=== PATIENT | male | born 1935 | race Caucasian/White ===

== ENCOUNTER 2017-10-11 09:39 | Outpatient (CLI) | payer MEDICARE, BC | END 2017-10-11 09:40 | disposition home or self-care (01) | LOC: BICMRI 09:39 | PROVIDERS: ATTEND Internal Medicine Gastroenterology | DX: R60.0 Localized edema (principal); R93.3 Abnormal findings on diagnostic imaging of other parts of digestive tract; R41.3 Other amnesia; K74.69 Other cirrhosis of liver; R68.89 Other general symptoms and signs; N28.1 Cyst of kidney, acquired; K76.6 Portal hypertension; K86.2 Cyst of pancreas; R16.1 Splenomegaly, not elsewhere classified; K76.89 Other specified diseases of liver | CPT/HCPCS: 74183; 82565 ==

== ENCOUNTER 2017-11-05 12:53 | Outpatient (CLI) | payer MEDICARE, BC | END 2017-11-05 12:54 | disposition home or self-care (01) | LOC: BICULT 12:53 | PROVIDERS: ATTEND Family Medicine | DX: N43.3 Hydrocele, unspecified (principal); Z98.890 Other specified postprocedural states | CPT/HCPCS: 76870; 93976 ==

== ENCOUNTER 2018-03-14 11:10 | Emergency (ER) | payer MEDICARE, BC ==
--- NOTE | 2018-03-14 12:00 | RAD ---
RIGHT WRIST 3 VIEWS: Date: 03/14/18 HISTORY: Wrist pain status post fall. FINDINGS: The bones appear slightly demineralized. There are arthritic changes of the wrist, mainly related to changes of the first carpometacarpal joint space and triscaphe joint. There is suggestion of some bor derline widening to the scapholunate ligament which may represent a scapholunate ligament tear which may very well be chronic in this patient. No signs of any acute fracture. IMPRESSION: No acute fracture. POS: [facility]
--- NOTE | 2018-03-14 12:07 | RAD ---
RIGHT HAND RADIOGRAPHS 3 VIEWS: DATE: 03/14/18. PROVIDED CLINICAL HISTORY: Pain status post fall. FINDINGS: Ring jewelry obscures the ring digit proximal phalanx. Given this limitation, there is no evidence f or a fracture or other acute osseous abnormality. Degenerative changes are seen. If there is persis tent clinical concern, conservative management and followup imaging are advised. IMPRESSION: As above. POS: [facility]
--- NOTE | 2018-03-14 12:43 | RAD ---
RIGHT ELBOW FOUR VIEWS: History: Fall. FINDINGS: There is elevation to the anterior fat pad suggesting a joint effusion. There are arthritic changes o f the elbow. On one of the oblique views there is lucency which extends through the supracondylar reg ion which is suspicious for a fracture, however, I cannot definitely see this on any of the other pro jections. It involves more of the lateral epicondyle region although appears fairly convincing on emerson t one image. IMPRESSION: Joint effusion and arthritic changes of the elbow, a single film finding which suggests a nondisplace d fracture through the lateral epicondyle region, somewhat unusual and I cannot see this on the other projections. This appears suspicion on this one view. It is possible that is related to overlying so ft tissue given the fact that I cannot see it on the other projections. It may be helpful to obtain s ome repeat oblique views to try to definitely reproduce this finding. POS: [facility]
--- NOTE | 2018-03-14 13:07 | CT ---
CT OF BRAIN PERFORMED WITHOUT CONTRAST ENHANCEMENT: History: Fall with head injury. FINDINGS: There is some mild generalized ventricular and sulcal prominence. There are no signs of intracerebral hemorrhage or extraaxial fluid collections. Mastoid air cells and visualized sinuses are clear. IMPRESSION: No acute intracranial abnormalities. POS: [facility]
--- NOTE | 2018-03-14 13:17 | CT ---
CT OF FACIAL BONES PERFORMED WITHOUT CONTRAST ENHANCEMENT: HISTORY: Fall, landing on face. FINDINGS: The nasal bone appears intact. Zygomatic arches are normal in appearance. No fluid is seen within the sinuses. There is no evidence of any orbital or maxillary fracture. Condyles are in normal position. No mandibular fracture. IMPRESSION: No CT evidence of fracture of the facial bones. POS: [facility]
== END 2018-03-14 13:37 | disposition home or self-care (01) ==
LOC: SCSER 11:10
DX: S42.411A Displaced simple supracondylar fracture without intercondylar fracture of right humerus, initial encounter for closed fracture (principal); I10 Essential (primary) hypertension; W18.30XA Fall on same level, unspecified, initial encounter
CPT/HCPCS: 29105; 70450; 70486

== ENCOUNTER 2018-04-03 07:37 | Outpatient (CLI) | payer MEDICARE, BC ==
--- NOTE | 2018-04-03 10:38 | MRI ---
MRI ABDOMEN WITH AND WITHOUT IV CONTRAST: INDICATIONS: History of cryptogenic cirrhosis of the liver, esophageal varices, and hepatic encephalopathy. COMPARISON: MRI abdomen, dated 10/11/2017 and 10/14/2015. TECHNIQUE: Multiplanar, multisequence MR images were obtained of the abdomen utilizing hepatic mass protocol, an d 7 mL of MultiHance was utilized for the examination due to the patient's GFR being 39 and a creatin ine level of 1.7. FINDINGS: The multiple T2 hyperintense, nonenhancing, cystic lesions of the liver, pancreas, and kidneys are st able. There is a stable, mildly prominent proteinaceous cyst involving the inferior pole of the righ t kidney, measuring 1.5 cm. No hydronephrosis is evident. A small amount of free fluid is seen with in the abdomen. The spleen remains enlarged, measuring 16.1 cm in greatest craniocaudad dimension. This is stable to the prior exam. Paraesophageal varicosities are similar appearing. There is wall thickening involving portions of the distal esophagus that appear similar. No bone marrow signal abn ormality is evident. No suspicious arterially enhancing focal hepatic lesion is demonstrated. IMPRESSION: 1. No suspicious arterial enhancing lesions seen within the liver to suggest hepatocellular carcinom a. 2. Cirrhotic morphology of the liver with portal hypertension and mild paraesophageal varicosities. 3. Wall thickening involving the distal esophagus may be related to esophagitis. 4. Stable hepatic, pancreatic, and renal cysts. POS: [facility]
[2018-04-03] MEDS ORDERED: Gadobenate Dimeglumine 529 MG/1 ML (20ML VIAL) ONE (16:10)
== END 2018-04-03 07:38 | disposition home or self-care (01) ==
LOC: BICMRI 07:37
PROVIDERS: ATTEND Internal Medicine Gastroenterology
DX: I85.00 Esophageal varices without bleeding (principal); K72.90 Hepatic failure, unspecified without coma; D64.9 Anemia, unspecified; K74.69 Other cirrhosis of liver; R41.3 Other amnesia; R93.3 Abnormal findings on diagnostic imaging of other parts of digestive tract; R79.9 Abnormal finding of blood chemistry, unspecified; K76.6 Portal hypertension; N28.1 Cyst of kidney, acquired; K76.89 Other specified diseases of liver; K86.2 Cyst of pancreas; K22.8 Other specified diseases of esophagus
CPT/HCPCS: 74183; 82565; A9579

== ENCOUNTER 2018-10-30 07:25 | Outpatient (CLI) | payer MEDICARE, BC ==
--- NOTE | 2018-10-30 08:18 | ULT ---
Exam: HEPATIC ULTRASOUND WITH HEPATIC DOPPLER: HISTORY: Cirrhosis. COMPARISON: None. TECHNIQUE: Grayscale, color flow, Doppler imaging, and spectral waveform analysis performed of the l iver FINDINGS: There is evidence of ascites. There is nodularity at the hepatic margin, compatible with patient's history of cirrhosis. No obvious masses within the liver. Liver measures 12.7 cm. Spleen has a normal echotexture. There is splenomegaly with a maximum dimension of 14.2 cm. Small spl enule at the splenic hilum measuring 2.3 x 1.5 x 1.8 cm noted. Gallbladder wall is thickened, likely due to presence of ascites. No sonographic evidence of cholelit hiasis. Comment is not made on the presence or absence of a Angeles's sign. Common bile duct diameter 0.6 cm. Hepatic Doppler: There is patency and normal directional flow of the hepatic artery, left hepatic vei n, middle hepatic vein, right hepatic vein, right portal vein, left portal vein, and the main portal vein Splenic vein and artery are also patent IMPRESSION: 1. Ascites. 2. Nodularity of liver, compatible with cirrhotic change. 3. Normal hepatic Doppler. 4. Splenomegaly. Transcribed Date/Time: 10/30/2018 8:35 AM
== END 2018-10-30 07:26 | disposition home or self-care (01) ==
LOC: BICULT 07:25
PROVIDERS: ATTEND Internal Medicine Gastroenterology
DX: K74.69 Other cirrhosis of liver (principal); R60.0 Localized edema; R79.9 Abnormal finding of blood chemistry, unspecified
CPT/HCPCS: 76705

== ENCOUNTER 2018-11-25 07:43 | Day surgery (SDC) | payer MEDICARE, BC ==
[2018-11-22 14:17] VITALS: BMI 24.9
[2018-11-25] MEDS ORDERED: Sodium Bicarbonate 2.5 MEQ/5 ML VIAL ONE (07:49)
[2018-11-25] MEDS ORDERED: Lidocaine 1% PF 5 ML VIAL ONE (07:49)
[2018-11-25] MEDS ORDERED: Albumin 25% 100 ML ONE (08:16)
[2018-11-25 09:14] VITALS: BP 149/71; TEMP 97.5
--- NOTE | 2018-11-25 09:50 | ULT ---
Sonographic guided paracentesis HISTORY: Ascites. Patient is uncomfortable. FINDINGS: After explaining the procedure and answering all questions, sonographic survey shows modera te amount of free fluid throughout the abdomen. Sterile technique, buffered local anesthesia, sonographic guidance, and a right lower quadrant approa ch were used to carefully advance a 19-gauge Yueh needle and catheter into the free fluid. Catheter was left to drain a total volume of 3.0 L yellow liquid. Catheter was removed. Minimal fluid remains. Patient tolerated the procedure well and was dismissed in good condition. IMPRESSION: Technically successful sonographic guided paracentesis.
== END 2018-11-25 09:00 | disposition home or self-care (01) ==
LOC: ULT 07:43
PROVIDERS: ATTEND Internal Medicine Gastroenterology
DX: K74.60 Unspecified cirrhosis of liver (principal); I85.10 Secondary esophageal varices without bleeding; R18.8 Other ascites; I12.9 Hypertensive chronic kidney disease with stage 1 through stage 4 chronic kidney disease, or unspecified chronic kidney disease; E11.22 Type 2 diabetes mellitus with diabetic chronic kidney disease; N18.9 Chronic kidney disease, unspecified; D63.1 Anemia in chronic kidney disease; I25.10 Atherosclerotic heart disease of native coronary artery without angina pectoris; K59.00 Constipation, unspecified; R19.7 Diarrhea, unspecified; R63.4 Abnormal weight loss; Z79.82 Long term (current) use of aspirin; Z79.84 Long term (current) use of oral hypoglycemic drugs; Z79.899 Other long term (current) drug therapy; Z95.1 Presence of aortocoronary bypass graft
CPT/HCPCS: 49083; P9047; J2001

== ENCOUNTER 2019-02-10 07:24 | Day surgery (SDC) | payer MEDICARE, BC ==
[2019-02-07 16:42] VITALS: BMI 26.7
[2019-02-10 07:42] LABS: INR-International Normal Ratio 1.3; PTT 32.6 SEC (22.9-36.1); Prothrombin Time 16.1 SEC (12.0-14.7)
[2019-02-10 07:56] LABS: #Basophils 0.1 thou/uL (0.0-0.2); #Eosinphils 0.2 thou/uL (0.0-0.7); #Lymphocytes 0.5 thou/uL (1.20-3.40); #Monocytes 0.5 thou/uL (0.11-0.59); #Neutrophils 4.6 thou/uL (1.40-6.50); %Eosinophils 3.4 % (0.0-10.0); %Lymphocytes 8.5 % (21.0-51.0); %Monocytes 8.3 % (0.0-10.0); %Neutrophils 78.8 % (42.0-75.0); Hemoglobin 11.4 g/dL (14.0-18.0); MDiff Complete? YES; Macrocytosis SLIGHT = 6-15 cells (100X) (0-5/hpf); Mean Corpuscular HGB CONC 32.7 g/dL (32.0-36.0); Mean Corpuscular Hemoglobin 35.1 pg (27.0-31.0); Mean Platelet Volume 8.4 fL (7.4-10.4); Ovalocytes SLIGHT = 2-5 cells (100X) (0-1/hpf); Platelet Count 85 thou/uL (130-400); Platelet Morphology Comment Appears Decreased; Polychromasia SLIGHT = 2-3 cells (100X) (0-2/hpf); RBC Distribution Width 13.5 % (11.5-14.5); Red Blood Cell (RBC) Count 3.24 mill/uL (4.70-6.10); White Blood Cell (WBC) Count 5.9 thou/uL (4.8-10.8)
[2019-02-10] MEDS ORDERED: Sodium Bicarbonate 2.5 MEQ/5 ML VIAL ONE (08:36)
--- NOTE | 2019-02-10 10:14 | ULT ---
Ultrasound-guided paracentesis: HISTORY: Symptomatic ascites FINDINGS: Informed consent obtained prior to the procedure. Preprocedural imaging demonstrated signif icant ascites throughout the abdomen and pelvis. Right lower quadrant prepped and draped in normal sterile fashion and anesthetized with 1% buffered l idocaine. With direct sonographic guidance, 5 Albanian Yueh catheter is advanced into the ascites and removal of the stylet yielded yellow fluid. 6.2 L were removed. The patient tolerated the procedure well. No postprocedural complications. IMPRESSION: Successful ultrasound-guided paracentesis yielding 6.2 L of yellow ascites.
[2019-02-10 10:17] VITALS: BP 189/92; TEMP 97.5
[2019-02-10 12:40] LABS: RBC Count-Automated (BF) 113 /cumm; WBC/Nucleated-Auto (BF) 175 /cumm
[2019-02-10 12:42] LABS: BF Color Yellow; Body Fluid Source Ascites Body Fluid; Clarity Hazy (Clear); Tube # EDTA
[2019-02-10 13:47] LABS: BF Segmented Neutrophils 6 %; Cell Count Non Hematic 73 %; Lymphocytes 21 %
== END 2019-02-10 10:00 | disposition home or self-care (01) ==
LOC: ULT 07:24
PROVIDERS: ATTEND Physician Assistant Medical
PROC: 0W9G3ZZ Drainage of Peritoneal Cavity, Percutaneous Approach (ICD-10-PCS; principal; 2019-02-10)
DX: R18.8 Other ascites (principal); K74.60 Unspecified cirrhosis of liver; I12.9 Hypertensive chronic kidney disease with stage 1 through stage 4 chronic kidney disease, or unspecified chronic kidney disease; E11.22 Type 2 diabetes mellitus with diabetic chronic kidney disease; N18.9 Chronic kidney disease, unspecified; I25.10 Atherosclerotic heart disease of native coronary artery without angina pectoris; Z87.891 Personal history of nicotine dependence; Z79.82 Long term (current) use of aspirin; Z79.84 Long term (current) use of oral hypoglycemic drugs; Z79.899 Other long term (current) drug therapy; Z95.1 Presence of aortocoronary bypass graft
CPT/HCPCS: 49083; 85025; 85060; 85610; 85730; 87070; 87205; 89051

== ENCOUNTER 2019-03-05 16:59 | Emergency (ER) | payer MEDICARE, BC | END 2019-03-05 17:26 | disposition home or self-care (01) | LOC: SCSER 16:59 | DX: S61.212A Laceration without foreign body of right middle finger without damage to nail, initial encounter (principal); I10 Essential (primary) hypertension; W01.198A Fall on same level from slipping, tripping and stumbling with subsequent striking against other object, initial encounter | CPT/HCPCS: 99282 ==

== ENCOUNTER 2019-03-14 12:08 | Day surgery (SDC) | payer MEDICARE, BC ==
[2019-03-13 14:35] VITALS: BMI 26.7
[2019-03-14 12:28] LABS: #Eosinphils 0.1 thou/uL (0.0-0.7); #Lymphocytes 0.6 thou/uL (1.20-3.40); #Monocytes 0.6 thou/uL (0.11-0.59); #Neutrophils 4.2 thou/uL (1.40-6.50); %Basophils 0.3 % (0.0-1.0); %Eosinophils 2.4 % (0.0-10.0); %Lymphocytes 10.3 % (21.0-51.0); %Monocytes 10.5 % (0.0-10.0); %Neutrophils 76.4 % (42.0-75.0); Hemoglobin 9.9 g/dL (14.0-18.0); Mean Corpuscular HGB CONC 33.4 g/dL (32.0-36.0); Mean Corpuscular Hemoglobin 34.9 pg (27.0-31.0); Mean Platelet Volume 9.2 fL (7.4-10.4); Platelet Count 81 thou/uL (130-400); RBC Distribution Width 13.2 % (11.5-14.5); Red Blood Cell (RBC) Count 2.84 mill/uL (4.70-6.10); White Blood Cell (WBC) Count 5.4 thou/uL (4.8-10.8)
[2019-03-14 12:30] LABS: INR-International Normal Ratio 1.4; PTT 32.6 SEC (22.9-36.1); Prothrombin Time 17.1 SEC (12.0-14.7)
[2019-03-14] MEDS ORDERED: Albumin 25% 200 ML ONE (12:37)
[2019-03-14] MEDS ORDERED: Sodium Bicarbonate 2.5 MEQ/5 ML VIAL ONE (12:37)
[2019-03-14 12:45] LABS: Anion Gap 10 mmol/L (10-20); BUN (Urea Nitrogen) 73 mg/dL (8.4-25.7); Calc. Creatinine Clearance 15 mL/min (70-130); Calcium 8.7 mg/dL (7.8-10.44); Carbon Dioxide 18 mmol/L (23-31); Chloride 112 mmol/L (98-107); Estimated GFR-MDRD 14; Glucose 118 mg/dL (83-110); Potassium 5.3 mmol/L (3.5-5.1); Sodium 135 mmol/L (136-145)
--- NOTE | 2019-03-14 14:53 | ULT ---
Ultrasound-guided paracentesis: HISTORY: Cirrhosis and ascites. FINDINGS: Informed consent obtained prior to the procedure. Preprocedural imaging demonstrated intrap eritoneal free fluid. An area was marked in the right mid abdomen, and then meticulously prepped and draped in normal steri le fashion and anesthetized with 1% buffered lidocaine. 50 mg of albumin was administered intravenously during the procedure is requested. With direct sonographic guidance, a 19-gauge needle and 5 [place] catheter were advanced into the abdomen. After the return of fluid, the catheter was advanced, and the needle was removed. Approximately 5 L of clear straw-colored fluid was aspirated. The introducer sheath was removed, and hemostasis was achieved with direct pressure. A dry sterile dressing was placed. The patient tolerated the procedure well and without immediate complication. IMPRESSION: Technically successful ultrasound-guided paracentesis.
== END 2019-03-14 14:00 | disposition home or self-care (01) ==
LOC: ULT 12:08
PROVIDERS: ATTEND Internal Medicine Gastroenterology
PROC: 0W9G3ZZ Drainage of Peritoneal Cavity, Percutaneous Approach (ICD-10-PCS; principal; 2019-03-14)
DX: K74.60 Unspecified cirrhosis of liver (principal); R18.8 Other ascites; I12.9 Hypertensive chronic kidney disease with stage 1 through stage 4 chronic kidney disease, or unspecified chronic kidney disease; E11.22 Type 2 diabetes mellitus with diabetic chronic kidney disease; N18.9 Chronic kidney disease, unspecified; I25.10 Atherosclerotic heart disease of native coronary artery without angina pectoris; Z79.82 Long term (current) use of aspirin; Z79.899 Other long term (current) drug therapy; Z95.1 Presence of aortocoronary bypass graft; Z95.2 Presence of prosthetic heart valve
CPT/HCPCS: 49083; 80048; 85025; 85610; 85730; P9047; 36415

== ENCOUNTER 2019-03-18 09:05 | Inpatient (IN) | payer MEDICARE, BC ==
[2019-03-18 09:39] LABS: #Basophils 0.1 thou/uL (0.0-0.2); #Eosinphils 0.2 thou/uL (0.0-0.7); #Lymphocytes 0.4 thou/uL (1.20-3.40); #Monocytes 0.4 thou/uL (0.11-0.59); #Neutrophils 4.1 thou/uL (1.40-6.50); %Basophils 1.3 % (0.0-1.0); %Eosinophils 3.4 % (0.0-10.0); %Lymphocytes 8.4 % (21.0-51.0); %Monocytes 8.3 % (0.0-10.0); %Neutrophils 78.7 % (42.0-75.0); Hemoglobin 10.1 g/dL (14.0-18.0); Mean Corpuscular HGB CONC 33.5 g/dL (32.0-36.0); Mean Corpuscular Hemoglobin 35.7 pg (27.0-31.0); Mean Platelet Volume 8.6 fL (7.4-10.4); Platelet Count 75 thou/uL (130-400); RBC Distribution Width 13.5 % (11.5-14.5); Red Blood Cell (RBC) Count 2.83 mill/uL (4.70-6.10); White Blood Cell (WBC) Count 5.3 thou/uL (4.8-10.8)
[2019-03-18 09:55] LABS: ALT (SGPT) 21 U/L (8-55); AST (SGOT) 38 U/L (5-34); Alkaline Phosphatase 150 U/L (40-110); Anion Gap 10 mmol/L (10-20); BUN (Urea Nitrogen) 78 mg/dL (8.4-25.7); Bilirubin, Total 0.7 mg/dL (0.2-1.2); Calc. Creatinine Clearance 0 mL/min (70-130); Calcium 8.5 mg/dL (7.8-10.44); Carbon Dioxide 17 mmol/L (23-31); Chloride 111 mmol/L (98-107); Estimated GFR-MDRD 17; Globulin 2.6 g/dL (2.4-3.5); Glucose 174 mg/dL (83-110); Lipase 45 U/L (8-78); Protein, Total 5.6 g/dL (5.8-8.1); Sodium 133 mmol/L (136-145)
[2019-03-18 09:56] LABS: ALT (SGPT) 21 U/L (8-55); AST (SGOT) 38 U/L (5-34); Alkaline Phosphatase 151 U/L (40-110); Bilirubin, Direct 0.4 mg/dL (0.1-0.3); Bilirubin, Total 0.7 mg/dL (0.2-1.2); Protein, Total 5.6 g/dL (5.8-8.1)
--- NOTE | 2019-03-18 10:29 | RAD ---
PORTABLE CHEST: Date: 03/18/19 HISTORY: Dyspnea. COMPARISON: 11/22/18 exam. FINDINGS: The heart size is enlarged. There are postop sternotomy changes. Aortic valve replacement is noted. C hronic-appearing lung changes are seen. IMPRESSION: Cardiomegaly with chronic lung change. No signs of pulmonary edema. POS: [facility]
[2019-03-18 10:34] LABS: MDiff Complete? YES; Macrocytosis SLIGHT = 6-15 cells (100X) (0-5/hpf); Ovalocytes SLIGHT = 2-5 cells (100X) (0-1/hpf); Platelet Morphology Comment Appears Decreased; Polychromasia SLIGHT = 2-3 cells (100X) (0-2/hpf)
[2019-03-18] MEDS ORDERED: Albumin 25% 25 GM/100 ML BOT IVPB SCH (11:15)
[2019-03-18 12:00] LABS: INR-International Normal Ratio 1.3; Prothrombin Time 16.5 SEC (12.0-14.7)
[2019-03-18] MEDS ORDERED: Acetaminophen 325 MG TAB PO PRN (12:01)
[2019-03-18] MEDS ORDERED: Morphine 2 MG/ML SYRINGE SLOW IVP PRN (12:01)
[2019-03-18] MEDS ORDERED: Ondansetron PF 4 MG/2 ML Vial IVP PRN (12:01)
[2019-03-18] MEDS ORDERED: Guaifenesin DM 100-10/5 ML UDCUP PO PRN (12:01)
[2019-03-18] MEDS ORDERED: Senokot S 8.6-50 MG TAB PO PRN (12:01)
[2019-03-18] MEDS ORDERED: Bisacodyl 10 MG SUPP PR PRN (12:01)
[2019-03-18] MEDS ORDERED: Dextrose 50% Abboject 50 ML SYRINGE SLOW IVP PRN (12:01)
[2019-03-18] MEDS ORDERED: HumaLOG 300 UNITS/3 ML VIAL SC PRN (12:01)
[2019-03-18] MEDS ORDERED: Dextrose 5% in Water 1,000 ML IV PRN (12:01)
[2019-03-18 12:25] VITALS: BMI 24.6
[2019-03-18] MEDS ORDERED: FLU VACC TS2019-20(65YR UP)/PF 180 MCG/0.5 ML SYRINGE IM ONE (12:45)
[2019-03-18] MEDS ORDERED: Sodium Bicarbonate 2.5 MEQ/5 ML VIAL ONE (13:27)
[2019-03-18] MEDS ORDERED: Sodium Chloride 0.9% 10 ML ONE (13:33)
--- NOTE | 2019-03-18 15:30 | ULT ---
Ultrasound-guided paracentesis: HISTORY: Cirrhosis and ascites FINDINGS: Informed consent obtained prior to the procedure. Preprocedural imaging demonstrated intrap eritoneal free fluid. An area was marked in the right mid abdomen in the mid axillary line, and then meticulously prepped a nd draped in normal sterile fashion and anesthetized with 1% buffered lidocaine. With direct sonographic guidance, a 19-gauge needle and 5 Serbian Yueh catheter were advanced into the abdomen. After the return of fluid, the catheter was advanced, and the needle was removed. Approximately 4.1 L of clear straw-colored fluid was aspirated. The introducer sheath was removed, a nd hemostasis was achieved with direct pressure. A dry sterile dressing was placed. The patient tolerated the procedure well and without immediate complication. IMPRESSION: Technically successful ultrasound-guided paracentesis.
--- NOTE | 2019-03-18 16:49 | HP ---
REASON FOR ADMISSION: Hepatorenal syndrome, metabolic acidosis, likely CHF exacerbation with diastolic dysfunction, ascites, failure to thrive. HISTORY OF PRESENTING ILLNESS: Please note, majority of this history is obtained by talking to the patient's and daughter as the patient is not fully oriented. He has known history of nonalcoholic cirrhosis from 2013. He had seen Dr. Red, visual associate in [place], and has had complete workup for the same done including a transjugular liver biopsy done in November of 2015. None of these workups revealed a cause for his cirrhosis. He in fact had a cardiac catheterization and MRI done, which did not reveal any constrictive pericarditis. The patient has had history of CKD for last one and half years or so. His GFR was around 38, which recently dropped down to 14. He had paracentesis done on Sunday. Yesterday, he had gone to see Dr. Murrell, who found out that he had a creatinine of 4.1, and asked them to see Dr. Benavides urgently. The family called Dr. Benavides and was asked to get hospitalized for albumin infusions. Family does mention that they do not want anything aggressive to be done. They were in fact leaning towards palliative care. PAST MEDICAL AND SURGICAL HISTORY: History of cirrhosis, etiology unknown; carotid artery stenosis, which was recently evaluated by Dr. Poon for medical management as the patient does not want any intervention; prior paracentesis; aortic valve replacement with CABG done in July of [address] Poon; history of transjugular liver biopsy done on 12/01/2015 at [facility], Dr. Red; has had prior hydrocele, which was removed in December of 2015; cardiac catheterization with MRI done in January of 2016 at [facility], which showed no evidence of constrictive pericarditis; upper endoscopy with esophageal dilation done in October of [address] uMrrell; history of elbow fracture in March of 2018; cataract surgery for both eyes; stress test done in October of [address] Michelle was negative. He has had paracentesis done in November of this year with 3 L removed, in January of this year 6 L removed, and on 03/14/2019 with 5 L removed and today as well. CURRENT MEDICATIONS: The patient takes; 1. Carvedilol 12.5 mg twice daily. 2. Omeprazole 40 mg daily. 3. Ferrous sulfate 325 mg p.o. daily. 4. Aspirin 81 mg p.o. daily. 5. Pravachol 20 mg p.o. at bedtime. 6. Hydralazine 50 mg three times daily. 7. Isosorbide dinitrate 20 mg three times daily. 8. Spironolactone 25 mg daily. ALLERGIES: NO KNOWN DRUG ALLERGIES. PERSONAL HISTORY: Does not abuse alcohol or drugs. No history of smoking. Lives with his . FAMILY HISTORY: Mother of leukemia and its complications in her 70s. Father at the age of 90 and has had DC. The patient ambulates mostly by himself inside the house, but uses cane as a precaution when he goes out. CODE STATUS: The patient wants to be do not attempt to resuscitate. This was confirmed with and daughter, who are here at bedside. REVIEW OF SYSTEMS: CONSTITUTIONAL: Negative for weight loss or gain, ability to conduct usual activities. SKIN: Negative for rash, itching. EYES: Negative for double vision, pain. ENT/MOUTH: Negative for nose bleeding, neck stiffness, pain, tenderness. CARDIOVASCULAR: Negative for palpitations, dyspnea on exertion, orthopnea. RESPIRATORY: Negative for shortness of breath, wheezing, cough, hemoptysis, fever or night sweats. GASTROINTESTINAL: Negative for poor appetite, abdominal pain, heartburn, nausea , vomiting, constipation, or diarrhea. GENITOURINARY: Negative for urgency, frequency, dysuria, nocturia. MUSCULOSKELETAL: Negative for pain, swelling. NEUROLOGIC/PSYCHIATRIC: Negative for anxiety, depression. ALLERGY/IMMUNOLOGIC: Negative for skin rash, bleeding tendency. Please see short template cogent for urgency, frequency, dysuria, nocturia. MUSCULOSKELETAL: Negative for pain, swelling. NEUROLOGIC/PSYCHIATRIC: Negative for anxiety, depression. ALLERGY/IMMUNOLOGIC: Negative for skin rash, bleeding tendency. PHYSICAL EXAMINATION: GENERAL: The patient is an 83-year-old male, who is currently not in any acute distress. VITAL SIGNS: Blood pressure is 148/72, pulse 50 per minute, respiratory rate 16 per minute, temperature 97.7 degrees Fahrenheit, saturating 98% on room air. NECK: Supple. There is elevated JVD. HEENT: Eyes; extraocular muscles are intact. Pupils reacting to light. Oral cavity, mucous membranes are dry. No exudates or congestion. CARDIOVASCULAR: S1 and S2 heard. Murmur plus. RESPIRATORY: Air entry 1+ bilateral. Scattered rales in the infrascapular area. ABDOMEN: Distended. There are ascites present. No rigidity or guarding. EXTREMITIES: There is 2+ peripheral edema. No calf tenderness. VASCULAR: Peripheral pulses 1+ bilateral. No ischemic ulcerations or gangrene. CENTRAL NERVOUS SYSTEM: No gross focal deficits noted. The patient moves all 4 extremities. PSYCHIATRIC: No obvious hallucinations or delusions. IMAGING STUDIES: EKG done shows sinus bradycardia at 47 beats per minute. Chest x-ray done shows cardiomegaly, this postop sternotomy change, aortic valve replacement is seen. Ultrasound-guided paracentesis has been done with removal of 4.1 L clear straw-colored fluid. LABORATORY DATA: Serum bicarb 17, potassium 5.0, BUN 78, creatinine 3.50, glucose 174, total bilirubin 0.7, AST 38, ALT 21, alkaline phosphatase 150. BNP is 1978. Albumin is 3. Lipase is 45. PT/INR 16 and 1.3. White count of 5, hemoglobin and hematocrit 10 and 30, platelet count is 75, MCV of 106, and 78% neutrophils. CLINICAL IMPRESSION AND PLAN: The patient will be admitted to medical floor for recurrent ascites with hepatorenal syndrome and idiopathic cirrhosis. He has a total of 9 L of ascitic fluid removed in the last 4 days now. He will be on albumin infusions for hepatorenal syndrome. Dr. Benavides is aware of the patient and family is also wanting Palliative Care consultation. They do not want any invasive procedures done on him. We will obtain echo with 2D Doppler for LV function and to rule out pericardial effusion. The patient has bradycardia at present with heart rates dipping down to 45, but family do not want any telemetry or aggressive measures for the same for now. We will continue his ferrous sulfate, morphine p.r.n. for pain, Protonix. We will obtain serial metabolic panel to see for stabilization of his renal function. We will obtain consultation with Dr. Murrell, his primary visual associate. His nephew is getting this weekend and he is hoping to be there for the ceremony. Palliative Care needs to talk to all the siblings, , and the patient regarding goals of care and possible hospice. His overall prognosis is guarded. Job ID: [id number] [facility]
[2019-03-18] MEDS ORDERED: Isosorbide Dinitrate 20 MG TAB PO SCH (17:00)
[2019-03-18] MEDS ORDERED: hydrALAZINE 25 MG TAB PO SCH (17:00)
[2019-03-18] MEDS: Sodium Chloride 0.9% 1,000 ML IV SCH (17:23)
[2019-03-18] MEDS: Albumin 25% 25 GM/100 ML BOT IVPB SCH ×2 (17:24→23:48)
[2019-03-18] MEDS: Octreotide Acetate 1,250 MCG in Sodium Chloride 0.9% 250 ML 250 ML IVPB SCH (18:09)
[2019-03-18 19:20] LABS: BF Color Yellow; Body Fluid Source Paracentesis Fluid; Clarity Hazy (Clear); Tube # EDTA
[2019-03-18 19:51] LABS: RBC Count-Automated (BF) 270 /cumm; WBC/Nucleated-Auto (BF) 86 uL
[2019-03-18 19:53] LABS: BF Segmented Neutrophils 14 %; Cell Count Non Hematic 55 %; Lymphocytes 31 %
[2019-03-18] MEDS: Carvedilol 25 MG TAB PO SCH (20:30)
[2019-03-18] MEDS: Rifaximin 550 MG TAB PO SCH (20:31)
[2019-03-18] MEDS: Simvastatin 5 MG TAB PO SCH (20:31)
[2019-03-18] MEDS: hydrALAZINE 25 MG TAB PO SCH (20:34)
[2019-03-18] MEDS: Isosorbide Dinitrate 20 MG TAB PO SCH (20:34)
--- NOTE | 2019-03-18 22:15 | CON ---
DATE OF CONSULTATION: REASON FOR CONSULT: Worsening ascites and worsening renal function. HISTORY OF PRESENT ILLNESS: Mr. Victoria is an 83-year-old gentleman with known coronary artery disease. He had bypass and aortic valve replacement back in 2013. In 2015, he was diagnosed with cirrhosis of unclear etiology. This still most likely associated from fatty liver, possibly cardiac ascites. Paracenteses in the past showed no evidence of SBP. He has had small varices that did not require banding. He has had no previous bleeding. He has had some issues with encephalopathy, but had reactions to lactulose, having a rash and they could not afford Xifaxan. He follows up routinely in our office for hepatoma screening, which has been negative more recently. His diuretics should be decreased as he is having increasing BUN and creatinine and then we went ahead and placed him on paracentesis every two weeks with increased dose of albumin at 50 grams with each paracentesis. His labs from his paracentesis on Sunday came back on yesterday with a creatinine of 4. He saw Dr. Benavides and was admitted to the hospital. His family has not noted any problems with bleeding. They felt he has been more confused recently. He has had no fever or chills. His appetite is very much diminished. He did have a paracentesis today with 4.1 L removed. PAST MEDICAL HISTORY: 1. Cirrhosis, unclear etiology. 2. Peripheral vascular disease with previous carotid repair. Prior valve replacement and CABG in 2013. 3. Prior history of hydrocele, surgically repaired. 4. Prior history of transjugular liver biopsy in [place]. 5. Prior history of elbow fracture and cataract surgery. MEDICATIONS: 1. Carvedilol 12.5 mg b.i.d. 2. Omeprazole 40 mg daily. 3. Ferrous sulfate daily. 4. Aspirin 81 mg daily. 5. Pravachol 20 mg at bedtime. 6. Hydralazine 50 mg t.i.d. 7. Isosorbide dinitrate 20 mg daily. 8. Aldactone 25 mg a day. ALLERGIES: NONE KNOWN. PERSONAL HISTORY: Does not use drugs or smoke. Lives with his . His daughter is here from [place]. There is a family wedding next Sunday, which he is trying to simply get better for to go to. FAMILY HISTORY: Leukemia in his mother in her 70s. Father at the age 90 with MA. The patient lives with his daughter. REVIEW OF SYSTEMS: The patient's family feels he has been more confused recently. His appetite has diminished recently. He has had no overt bleeding, fever, rashes, myalgias or arthralgias, or falls. MEDICATIONS HERE: 1. Tylenol. 2. Bisacodyl. 3. Iron. 4. Levsin. 5. Morphine p.r.n. 6. Zofran p.r.n. 7. Protonix. 8. Albumin 25 g IV q.6. PHYSICAL EXAMINATION: VITAL SIGNS: Blood pressure is 136/67, pulse is 50, temperature 97.4, and respirations 18. GENERAL: He is resting in bed. He is little bit hard of hearing. He recognizes me, knows he is in the hospital, however, he said things that he is eating very well at home and his family says he is not. They noted he has not been sharp remembering family history or distant events recently. In generally, he looks chronically ill. NECK: Supple without any adenopathy. Carotids were noted for bruits. HEART: Has regular rate and rhythm without clicks or murmurs. ABDOMEN: Soft, slightly protuberant with fluid wave. There is no palpable hepatosplenomegaly. EXTREMITIES: Reveal trace edema. There is no clubbing. He has mild asterixis. LABORATORY DATA: White count 5.3, hemoglobin 10.1, platelet count 75,000, and MCV 106. INR is 1.3, which is stable. Sodium 133, potassium 5, BUN and creatinine are 78 and 3.5. On 01/27, these were 46 and 2.46. Hemoglobin A1c is 8.2. Calcium 8.5, bilirubin 0.7, AST and ALT are 38 and 21, alkaline phosphatase is 150, protein is 5.6, and albumin is 3. BNP is 1978. Lipase 45. Amylase 68. ASSESSMENT: 1. Cirrhosis, possibly related to fatty liver, unclear etiology. Negative evaluation for autoimmune liver disease and viral hepatitis. He has been up-to-date on hepatoma screening. Has had become more refractory to diuretics requiring routine paracentesis. 2. Ascites, worsening. He had a tap today. Studies for SBP are pending. 3. Worsening renal function, this is likely hepatorenal. We will defer to Nephrology on ordering tests to look into that further. 4. Hypertension. He has not been started on his home medicines, needs those. RECOMMENDATIONS: 1. I would not restrict his sodium at this time. He is not eating well. 2. If sodium continues to drop, we would hold off on the beta chente, but he does need some blood pressure medicines now. 3. We would hold off on all diuretics. 4. We would check for SBP. 5. We would empirically give him some cefotaxime one dose until cell counts are back. 6. We will keep him on albumin 25 g IV q.6. 7. We would start him on some low-dose IV fluids to improve his renal function. 8. We will put him on octreotide drips as this sometimes can help in hepatorenal syndrome. Job ID: [id number]
--- NOTE | 2019-03-18 22:53 | CON ---
DATE OF CONSULTATION: HISTORY OF PRESENT ILLNESS: Mr. Victoria is an 83-year-old white male with known history of chronic renal failure secondary to a presumed diabetic nephropathy. He came to my office one day prior to admission and he has reported creatinine 4.01. I felt that he had some volume depletion after his last paracentesis which they removed about 5 L. He was admitted for further management. At the ER when he was seen, he was noted to still have significant ascites and he was symptomatic. He again underwent large volume paracentesis today. Please note, creatinine was noted at 3.5. We are being consulted for his acute kidney injury on top of his chronic renal failure. REVIEW OF SYSTEMS: No shortness of breath. Positive for abdominal fullness. No nausea. No vomiting. Decreased energy level. Positive for occasional leg edema. No diarrhea. No constipation. No fever or chills. No productive cough. No gross hematuria. No dysuria. No hematochezia. No melena. HOME MEDICATIONS: Include 1. Carvedilol 12.5 mg tablet b.i.d. 2. Omeprazole 40 mg tablet daily. 3. Ferrous sulfate 325 mg once a day. 4. Aspirin 81 mg tablet once a day. 5. Pravastatin 20 mg tablet at bedtime. 6. Hydralazine 50 mg tab t.i.d. 7. Isordil 20 mg p.o. t.i.d. 8. Furosemide 20 mg tablet p.r.n. 9. Spironolactone 25 mg tablet once a day. PAST MEDICAL HISTORY: 1. Chronic ascites. 2. Cryptogenic cirrhosis. 3. Type 2 diabetes mellitus. 4. 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 5. Status post nephrolithiasis. 6. Hypertension. 7. Hyperlipidemia. 8. GERD. 9. Coronary artery disease. 10. Peripheral vascular disease. PAST SURGICAL HISTORY: Status post transjugular liver biopsy, status post paracentesis, status post cardiac cath, status post lithotripsy, status post left inguinal herniorrhaphy, status post excision of hydrocele, status post left carotid endarterectomy, status post CABG, status post cardiac cath, status post colonoscopy, status post aortic valve replacement, status post cataract surgery. SOCIAL HISTORY: The patient is . Lives in [place]. Three children. He is a retired old . Alcohol, none. Smoked for 30 years, 1 pack a day. Sedentary lifestyle. Denies any blood transfusion. No IV drug abuse. Education, 11th grade. FAMILY HISTORY: No family history of ESRD. ALLERGIES: NONE. TRAUMA: None. IMMUNIZATIONS: Up-to-date. HOSPITALIZATIONS: Please see past medical history. PHYSICAL EXAMINATION: VITAL SIGNS: Blood pressure 176/67, heart rate 50, respiratory rate 16, temperature 97.4, and pulse ox 99%. GENERAL: Noted to be awake, alert, supine, comfortable, not in overt distress. SKIN: Adequate turgor. HEENT: The patient has a slightly pale conjunctivae. Anicteric sclerae. No neck mass. No carotid bruits. No JVD. CHEST: No deformities. LUNGS: Decreased breath sounds. HEART: Normal sinus rhythm. No murmur. No gallops. No rubs. ABDOMEN: Globular, soft, nontender. No masses. Positive for ascites. EXTREMITIES: Trace edema. NEUROLOGICAL: Oriented to 3 spheres. Moving all extremities. No tremors. No asterixis. LABORATORY DATA: March 18, 2019, white count 5.2, hemoglobin 10.1. Sodium 133, potassium 5, chloride 111, carbon dioxide 17, BUN 78, creatinine 3.5, calcium 8.5, albumin 3.0, lipase 45. Further review of his serum creatinine shows the following. March 14, 2019, creatinine 4.12. February 26, 2019, creatinine 2.98. February 20, 2019, 2.72. ASSESSMENT AND PLAN: 1. Acute kidney injury on top of his chronic renal failure, superimposed prerenal azotemia secondary to his underlying cirrhosis and paracentesis. Agree with albumin infusion 25 g IV q.6. We will hold off furosemide temporarily. However, my bias is to continue spironolactone at the current dose of 25 mg tablet once a day. 2. Ascites. Underlying kmfrvbwuf-wiumjqmzjlc-nit a liver transplant candidate. P.r.n. paracentesis. 3. 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 There is no indication for any dialytic intervention with this patient. I have discussed palliative care with this patient and the family. They are interested. 4. Overall, agree with current management. Job ID: [id number]
[2019-03-19 03:48] LABS: #Eosinphils 0.1 thou/uL (0.0-0.7); #Lymphocytes 0.4 thou/uL (1.20-3.40); #Monocytes 0.3 thou/uL (0.11-0.59); #Neutrophils 2.3 thou/uL (1.40-6.50); %Basophils 0.6 % (0.0-1.0); %Eosinophils 4.2 % (0.0-10.0); %Lymphocytes 12.3 % (21.0-51.0); %Neutrophils 71.9 % (42.0-75.0); Hemoglobin 8.4 g/dL (14.0-18.0); Mean Corpuscular HGB CONC 33.7 g/dL (32.0-36.0); Mean Corpuscular Hemoglobin 35.7 pg (27.0-31.0); Platelet Count 59 thou/uL (130-400); RBC Distribution Width 13.4 % (11.5-14.5); Red Blood Cell (RBC) Count 2.36 mill/uL (4.70-6.10); White Blood Cell (WBC) Count 3.1 thou/uL (4.8-10.8)
[2019-03-19 04:08] LABS: ALT (SGPT) 14 U/L (8-55); AST (SGOT) 24 U/L (5-34); Albumin 3.2 g/dL (3.4-4.8); Alkaline Phosphatase 109 U/L (40-110); Anion Gap 11 mmol/L (10-20); BUN (Urea Nitrogen) 76 mg/dL (8.4-25.7); Calc. Creatinine Clearance 17 mL/min (70-130); Calcium 8.5 mg/dL (7.8-10.44); Carbon Dioxide 17 mmol/L (23-31); Chloride 113 mmol/L (98-107); Estimated GFR-MDRD 18; Glucose 94 mg/dL (83-110); Potassium 5.7 mmol/L (3.5-5.1); Protein, Total 5.2 g/dL (5.8-8.1); Sodium 135 mmol/L (136-145)
[2019-03-19] MEDS: Albumin 25% 25 GM/100 ML BOT IVPB SCH ×3 (06:10→18:07)
[2019-03-19] MEDS ORDERED: Spironolactone 25 MG TAB PO SCH (08:00)
[2019-03-19] MEDS: Ferrous Sulfate 325 MG TAB PO SCH ×2 (09:24→09:26)
[2019-03-19] MEDS: Isosorbide Dinitrate 20 MG TAB PO SCH ×3 (09:25→20:35)
[2019-03-19] MEDS: Carvedilol 25 MG TAB PO SCH ×2 (09:25→20:34)
[2019-03-19] MEDS: Rifaximin 550 MG TAB PO SCH ×2 (09:25→20:30)
[2019-03-19] MEDS: Aspirin Chewable 81 MG TAB PO SCH (09:25)
[2019-03-19] MEDS: hydrALAZINE 25 MG TAB PO SCH ×3 (09:25→20:34)
[2019-03-19] MEDS: Sodium Chloride 0.9% 1,000 ML IV SCH ×2 (12:37→23:54)
--- NOTE | 2019-03-19 14:14 | PDOC.HOSPP ---
- Subjective Encounter Date: 03/19/19 Encounter Time: 13:00 Subjective: no pain, feels better after paracentesis yesterday son and daughter at bedside ate his breakfast well this am is mobilizing to bathroom - Objective Vital Signs & Weight: Vital Signs (12 hours) Temp Pulse Resp BP BP Pulse Ox 03/19/19 09:25 55 L 147/64 H 03/19/19 08:00 96 03/19/19 07:28 98.0 F 55 L 16 147/64 H 96 03/19/19 04:48 98.8 F 62 18 129/61 97 Weight Weight 157 lb 8 oz I&O: 03/18/19 03/19/19 03/20/19 06:59 06:59 06:59 Intake Total 730 240 Balance 730 240 Result Diagrams: 03/19/19 03:34 03/19/19 03:34 Additional Labs: Accuchecks 03/19/19 03/19/19 11:32 03:55 POC Glucose 207 H 95 Hospitalist ROS - Medication Medications: Active Medications Generic Name Dose Route Start Last Admin Trade Name Freq PRN Reason Stop Dose Admin Albumin Human 25 gm 03/18/19 18:00 03/19/19 12:30 Albumin 25% IVPB 03/20/19 00:00 25 gm Q6HR CHAPO Administration Aspirin 81 mg 03/19/19 09:00 03/19/19 09:25 Aspirin Chewable PO 81 mg DAILY CHAPO Administration Carvedilol 12.5 mg 03/18/19 21:00 03/19/19 09:25 Coreg PO 12.5 mg BID CHAPO Administration Ferrous Sulfate 325 mg 03/19/19 09:00 03/19/19 09:24 Feosol PO 325 mg DAILY CHAPO Administration Ferrous Sulfate 325 mg 03/19/19 08:00 03/19/19 09:26 Feosol PO Not Given QAM-WM CHAPO Hydralazine HCl 50 mg 03/18/19 21:00 03/19/19 09:25 Apresoline PO 50 mg TID CHAPO Administration Octreotide Acetate 1,250 mcg/ 251.25 mls @ 10.05 mls/hr 03/18/19 17:15 18:09 Sodium Chloride IVPB 251.25 mls INF CHAPO Administration 50 MCG/HR Levofloxacin 250 mg/ Device 50 mls @ 100 mls/hr 03/18/19 18:00 03/18/19 18:08 IVPB 50 mls 1800 CHAPO Administration Sodium Chloride 1,000 mls @ 50 mls/hr 03/18/19 17:15 03/19/19 12:37 Normal Saline 0.9% IV 1,000 mls .Q20H CHAPO Administration Isosorbide Dinitrate 20 mg 03/18/19 21:00 03/19/19 09:25 Isordil PO 20 mg TID CHAPO Administration Pantoprazole Sodium 40 mg 03/19/19 09:00 03/19/19 09:25 Protonix PO 40 mg DAILY CHAPO Administration Pantoprazole Sodium 40 mg 03/19/19 09:00 03/19/19 09:26 Protonix PO Not Given DAILY CHAPO Rifaximin 550 mg 03/18/19 21:00 03/19/19 09:25 Xifaxan PO 550 mg BID CHAPO Administration Simvastatin 10 mg 03/18/19 21:00 03/18/19 20:31 Zocor PO 10 mg HS CHAPO Administration Sodium Chloride 10 ml 03/18/19 21:00 03/19/19 12:32 Flush - Normal Saline IVF 10 ml Q12HR CHAPO Administration - Exam General Appearance: awake alert Eye: anicteric sclera ENT: no oropharyngeal lesions, moist mucosa Neck: supple, no JVD Heart: RRR, no murmur Respiratory: no wheezes, no rales Gastrointestinal: soft, non-tender, normal bowel sounds, distended Extremities: no cyanosis, no edema Neurological: cranial nerve grossly intact, no focal deficits Psychiatric: normal affect, A&O x 3 Hosp A/P (1) Hepatorenal syndrome Code(s): K76.7 - HEPATORENAL SYNDROME Status: Acute (2) Ascites Code(s): R18.8 - OTHER ASCITES Status: Acute (3) Cirrhosis Code(s): K74.60 - UNSPECIFIED CIRRHOSIS OF LIVER Status: Chronic Qualifiers: Hepatic cirrhosis type: unspecified hepatic cirrhosis Ascites presence: with ascites Qualified Code(s): K74.60 - Unspecified cirrhosis of liver; R18.8 - Other ascites (4) Acute exacerbation of CHF (congestive heart failure) Code(s): I50.9 - HEART FAILURE, UNSPECIFIED Status: Acute Qualifiers: Heart failure type: diastolic Qualified Code(s): I50.33 - Acute on chronic diastolic (congestive) heart failure (5) Dementia Code(s): F03.90 - UNSPECIFIED DEMENTIA WITHOUT BEHAVIORAL DISTURBANCE Status: Chronic Qualifiers: Dementia type: unspecified type (6) HTN (hypertension) Code(s): I10 - ESSENTIAL (PRIMARY) HYPERTENSION Status: Chronic Qualifiers: Hypertension type: essential hypertension Qualified Code(s): I10 - Essential (primary) hypertension (7) Dyslipidemia Code(s): E78.5 - HYPERLIPIDEMIA, UNSPECIFIED Status: Chronic - Plan he recieved alb infusion renal function holding up with no further worsening is on asp, coreg, isordil, hydralazine, levaquin, xifaxan, octreotide drip and oral iron hemostable d/w daughter and son at bedside plan is to aim for dc on sunday evening so he can attend his nephew's wedding with family gathering on sunday. Palliative care to meet family today?
[2019-03-19] MEDS: Octreotide Acetate 1,250 MCG in Sodium Chloride 0.9% 250 ML 250 ML IVPB SCH (18:02)
--- NOTE | 2019-03-19 19:40 | EKG ---
Test Reason : SOB/EDEMA Blood Pressure : / mmHG Vent. Rate : 047 BPM Atrial Rate : 047 BPM P-R Int : 182 ms QRS Dur : 084 ms QT Int : 554 ms P-R-T Axes : 016 -40 023 degrees QTc Int : 490 ms Sinus bradycardia Left axis deviation Low voltage QRS Possible Inferior infarct , age undetermined Cannot rule out Anterior infarct , age undetermined Abnormal ECG Confirmed by CARLOS BRUNO, DR. Luna ([id number]) on 03/19/2019 7:39:56 PM Referred By: SWEETIE Confirmed By:DR. Cheryl GONZALEZ MD
[2019-03-19] MEDS: Simvastatin 5 MG TAB PO SCH (20:31)
[2019-03-19] MEDS ORDERED: Lorazepam 1 MG TAB PO SCH (21:00)
[2019-03-20] MEDS: Albumin 25% 25 GM/100 ML BOT IVPB SCH ×5 (00:20→22:02)
[2019-03-20 06:53] LABS: ALT (SGPT) 11 U/L (8-55); AST (SGOT) 17 U/L (5-34); Albumin 3.6 g/dL (3.4-4.8); Alkaline Phosphatase 97 U/L (40-110); Anion Gap 11 mmol/L (10-20); BUN (Urea Nitrogen) 75 mg/dL (8.4-25.7); Bilirubin, Total 0.8 mg/dL (0.2-1.2); Calc. Creatinine Clearance 18 mL/min (70-130); Calcium 8.4 mg/dL (7.8-10.44); Carbon Dioxide 17 mmol/L (23-31); Chloride 115 mmol/L (98-107); Estimated GFR-MDRD 19; Globulin 1.8 g/dL (2.4-3.5); Glucose 105 mg/dL (83-110); Potassium 5.6 mmol/L (3.5-5.1); Protein, Total 5.4 g/dL (5.8-8.1); Sodium 137 mmol/L (136-145)
--- NOTE | 2019-03-20 07:35 | PRG ---
DATE OF SERVICE: 03/19/2019 SUBJECTIVE: Mr. Victoria feels little better today. He is eating little bit better. He is urinating well. MEDICATIONS: 1. Tylenol. 2. Aspirin. 3. Carvedilol 12.5 mg b.i.d. 4. Iron. 5. Glucagon. 6. Hydralazine 50 mg p.o. t.i.d. 7. Insulin sliding scale. 8. Isordil 20 mg p.o. t.i.d. 9. Levofloxacin 250 mg once a day. 10. Ativan p.r.n. 11. Morphine p.r.n. 12. Octreotide drip. 13. Protonix. 14. Seroquel. 15. Xifaxan. 16. Simvastatin. 17. 50 mL an hour of normal saline. PHYSICAL EXAMINATION: GENERAL: He is alert and oriented to person, place, and time. EYES: He is nonicteric. EXTREMITIES: There is no edema in his legs. ABDOMEN: He has fluid wave and shifting dullness with non-tense ascites. No palpable hepatosplenomegaly. There is muscle wasting. NEURO: No asterixis. VITAL SIGNS: Blood pressure 147/64, pulse 55, temperature 98, weight 157. LABORATORY STUDIES: White count 3.1, hemoglobin 8.4, platelet count 59,000. Sodium 135, potassium 5.7, chloride 113, bicarb 17, anion gap 11, BUN 76 down from 78, creatinine 3.3 down from 3.5, glucose 207, bilirubin 1, AST and ALT 24 and 14, total protein 5.2, albumin 3.2. His alpha-fetoprotein was normal in October of this year. Ammonia 61. Ascitic fluid, 86 white blood cells. Culture negative. Pathology, no malignancy. ASSESSMENT: 1. Cirrhosis of unclear etiology. He had a biopsy in 2016 with mildly elevated portal hepatic wedge pressure at 8-10. Despite that, he had fluid overload and ascites. He had no overt heart failure and seemed to have ascites out of proportion to his liver disease. He had no signs of constrictive pericarditis with right atrial pressure of 2 and hepatic vein pressure of around 2 as well. His main issues have been ascites and edema, managing that with renal insufficiency which was felt to be related to chronic diabetic nephropathy. He is admitted with acute on chronic renal failure. It was felt to be related to diuresis for which he has been receiving albumin and his diuretics have been stopped. Today he is feeling little bit better. 2. Elevated potassium. We will continue to hold Aldactone. 3. Slight drop in creatinine. 4. Up-to-date on hepatoma screening. 5. Encephalopathy, doing well. 6. History of heart valve replacement. Echocardiogram today revealed EF of 60%. LV function normal. Right ventricular normal size and cavity. Right ventricular systolic pressure of 77 with component of pulmonary hypertension, mildly dilated left atrium, normal right atrium, normal functioning of bioprosthetic valve, [id number] tricuspid regurgitation. RECOMMENDATIONS: 1. We will increase his IV fluid a bit, hopefully treat his hyperkalemia to see more improvement in renal function. We will continue albumin. We will continue octreotide drip. 2. We would consider involving his waist fitter in his care with right-sided heart pressures. As noted on previous transjugular liver biopsy in 2016, it showed no signs of constrictive pericarditis or elevated right atrial pressures at that time. Interestingly, he had no signs of cirrhosis on his biopsy at that time. We may be dealing with more of a right heart failure issue. 3. I had a long conversation with the patient's daughter about palliative care and options. I think if we can manage him with paracentesis without diuretics and albumin infusions to see how his renal function responds to fluid. Job ID: [id number]
[2019-03-20] MEDS: Ferrous Sulfate 325 MG TAB PO SCH ×2 (08:49→08:50)
[2019-03-20] MEDS: Aspirin Chewable 81 MG TAB PO SCH (08:49)
[2019-03-20] MEDS: Rifaximin 550 MG TAB PO SCH ×2 (08:49→20:16)
[2019-03-20] MEDS: hydrALAZINE 25 MG TAB PO SCH ×3 (08:50→20:16)
[2019-03-20] MEDS: Isosorbide Dinitrate 20 MG TAB PO SCH ×2 (08:51→16:43)
[2019-03-20] MEDS ORDERED: Epoetin (ESRD) 20,000 UNITS/ML SC SCH (09:00)
--- NOTE | 2019-03-20 09:07 | PRG ---
DATE OF SERVICE: 03/20/2019 SUBJECTIVE: Mr. Victoria is an 83-year-old white male, who was admitted for an acute kidney injury as well as for cirrhosis/ascites. He underwent a therapeutic paracentesis. In addition, he has been started on albumin infusion as well as octreotide by his certified neurodiagnostic technologist. This morning, he has no new complaints. He feels tired, but denies any chest pain or shortness of breath. OBJECTIVE: VITAL SIGNS: Blood pressure 168/71, heart rate 50, respiratory rate 18, temperature 98.4, and pulse ox 96%. GENERAL: Awake, alert, supine, comfortable, not in distress. SKIN: Adequate turgor. HEENT: Slightly pale conjunctivae. Anicteric sclerae. NECK: No neck mass. No carotid bruits. No JVD. CHEST: No deformities. LUNGS: Clear breath sounds. HEART: Normal sinus rhythm. No murmurs. No gallops. No rubs. ABDOMEN: Globular, soft, and nontender. Positive for ascites. EXTREMITIES: No edema. No deformities. MEDICATIONS: Medication of March 20, 2019, was reviewed. LABORATORY DATA: Laboratories of March 19, 2019; white count 2.1, hemoglobin 8.4. On March 20, 2019; sodium 137, potassium 5.6, chloride 115, carbon dioxide 17, BUN 75, creatinine 3.12, albumin is 3.6, AST 17, and ALT 11. ASSESSMENT: 1. Mild hyperkalemia. Currently, the patient is off his spironolactone. 2. Bradycardia - asymptomatic. Continue to observe. If persistent, consider holding off his Coreg. 3. Hypertension, stable. Continue current BP medications. Considering to discontinue Coreg. 4. Cirrhosis/ascites. Supportive care on octreotide. Gastroenterology following. 5. Anemia. We will start weekly Epogen with this patient. 6. Acute kidney injury. Hemodynamically-mediated renal dysfunction on top of his chronic renal failure. Stabilizing renal function. Agree with current management. Recheck basic metabolic panel and CBC in a.m. Job ID: [id number]
[2019-03-20] MEDS: Carvedilol 25 MG TAB PO SCH (11:12)
[2019-03-20] MEDS ORDERED: EPOETIN ALFA-EPBX (ESRD) 4,000 UNIT/ML VIAL SC SCH (12:00)
--- NOTE | 2019-03-20 16:03 | PRG ---
DATE OF SERVICE: 03/20/2019 SUBJECTIVE: Mr. Victoria is a little bit oversedated last night and sleepy most today. He got some Ativan 1 mg and 50 mg of Seroquel. His bowels are moving. He does not eat much today because of that. He denies any abdominal pain. OBJECTIVE: VITAL SIGNS: Temperature is 98, pulse 50, blood pressure 160/71. Weight 157. LUNGS: Clear. HEART: Regular rate and rhythm without clicks or murmurs. ABDOMEN: Soft and protuberant with shifting dullness and fluid wave consistent with ascites. EXTREMITIES: Reveal trace edema. LABORATORY DATA: Sodium 135, potassium 5.6, BUN and creatinine are 75 and 3.12, protein 5.4, albumin 3.6. ASSESSMENT: 1. Ascites, refractory, probably secondary to right heart failure and cirrhosis. Plan for palliative paracentesis tomorrow. 2. Chronic renal failure with [id number] failure probably related to his renal disease, diuresis, and paracentesis, although he has been getting albumin in the outpatient setting with his paracentesis. His renal function has continued to deteriorate. It has stabilized now and slightly improved with IV fluid and albumin. 3. Cirrhosis of unclear etiology. He had no cirrhosis on biopsy in 2016, where he initially presented in minimal portal hypertension, but he has cirrhotic changes on the liver. He also has changes of the right heart failure on his ultrasound. I suspect this is probably contributing to his edema as well as his fairly preserved hepatic function otherwise. 4. Over-sedation, likely related to some hepatic encephalopathy and medications. I have stopped his Seroquel and the Ativan. These are inappropriate medications in a cirrhotic with encephalopathy issues. 5. The patient started to decide on palliative care versus hospice versus outpatient comfort management with p.r.n. paracentesis. They have met with Palliative Care representatives and . They wished for him to be discharged tomorrow to be able to go to family wedding. Job ID: [id number]
[2019-03-20] MEDS: Sodium Chloride 0.9% 1,000 ML IV SCH ×2 (16:58→20:17)
--- NOTE | 2019-03-20 17:47 | CON ---
DATE OF CONSULTATION: HISTORY OF PRESENT ILLNESS: The patient is an 83-year-old gentleman with a history of coronary artery disease and cirrhosis, who presents for evaluation of increasing edema. The patient has a long history of cardiac disease. He has previously undergone coronary artery bypass surgery and aortic valve replacement in 2013. The patient developed following surgery recurrent edema. He underwent a cardiac evaluation including a complete catheterization, which revealed no evidence of constrictive pericarditis. He has been treated for cirrhosis of unclear etiology. He presents with increasing lower extremity swelling. He underwent a paracentesis. The patient reports being breathing better, but subsequently states he was dyspneic. He denied having any chest discomfort. PAST MEDICAL HISTORY: Significant for; 1. Coronary artery disease. 2. Aortic valve replacement. 3. Cirrhosis. 4. Hypertension. 5. Renal insufficiency. PAST SURGICAL HISTORY: He has had hydrocele surgery, elbow surgery, cataract surgery. MEDICATIONS: See nursing list. SOCIAL HISTORY: Nonsmoker. FAMILY HISTORY: No strong family history of coronary artery disease. REVIEW OF SYSTEMS: Noted for decreased appetite and weakness. PHYSICAL EXAMINATION: GENERAL: Pale gentleman, in no acute distress. VITAL SIGNS: Blood pressure 160/74. NECK: Showed elevated jugular venous distention. LUNGS: Clear to auscultation. HEART: Regular rate and rhythm. Normal S1 and S2. A 3/6 systolic murmur. ABDOMEN: Distended. EXTREMITIES: Showed mild edema. VASCULAR: Radial pulses 2+. LABORATORY DATA: Sodium 137, potassium 5.6, chloride 115, bicarbonate 17, BUN 75, creatinine 3.1. White blood cell count 3.1, hemoglobin 8.4, hematocrit 25.4, platelets 59. INR 1.3. IMAGING STUDIES: EKG, sinus bradycardia with left axis deviation, low voltage QRS. Echocardiogram, normal left ventricular ejection fraction of 60% to 65%, pulmonary hypertension [id number] with a dilated IVC. IMPRESSION: 1. Cirrhosis. 2. History of coronary artery bypass surgery. 3. History aortic valve replacement. 4. Pulmonary hypertension. 5. Bradycardia. PLAN: This gentleman presents with bradycardia. From a cardiac standpoint, we will adjust his medications. The patient is undergoing palliative care. We will follow this patient with you through his hospitalization. Job ID: [id number]
--- NOTE | 2019-03-20 18:31 | PDOC.HOSPP ---
- Subjective Encounter Date: 03/20/19 Encounter Time: 09:45 Subjective: is lethargic and sleepy, responds well to verbal stimuli family at bedside - Objective Vital Signs & Weight: Vital Signs (12 hours) Temp Pulse Resp BP BP Pulse Ox 03/20/19 16:43 51 L 160/74 H 03/20/19 08:50 50 L 168/71 H 03/20/19 08:00 98.4 F 50 L 18 168/71 H 96 Weight Admit Weight 157 lb 8 oz Weight 157 lb 8 oz I&O: 03/19/19 03/20/19 03/21/19 06:59 06:59 06:59 Intake Total 730 560 220 Balance 730 560 220 Result Diagrams: 03/19/19 03:34 03/20/19 06:12 Additional Labs: Accuchecks 03/20/19 05:01 POC Glucose 110 Hospitalist ROS - Medication Medications: Active Medications Generic Name Dose Route Start Last Admin Trade Name Freq PRN Reason Stop Dose Admin Albumin Human 25 gm 03/19/19 22:45 03/20/19 18:13 Albumin 25% IVPB 03/22/19 22:46 25 gm Q6H CHAPO Administration Aspirin 81 mg 03/19/19 09:00 03/20/19 08:49 Aspirin Chewable PO 81 mg DAILY CHAPO Administration Epoetin Luís-epbx 7,500 unit 03/20/19 12:00 03/20/19 16:47 Retacrit SC 7,500 unit Q7D CHAPO Administration Ferrous Sulfate 325 mg 03/19/19 09:00 03/20/19 08:49 Feosol PO 325 mg DAILY CHAPO Administration Ferrous Sulfate 325 mg 03/19/19 08:00 03/20/19 08:50 Feosol PO Not Given QAM-WM CHAPO Octreotide Acetate 1,250 mcg/ 251.25 mls @ 10.05 mls/hr 03/18/19 17:15 18:02 Sodium Chloride IVPB 251.25 mls INF CHAPO Administration 50 MCG/HR Sodium Chloride 1,000 mls @ 75 mls/hr 03/19/19 22:44 03/20/19 16:58 Normal Saline 0.9% IV Not Given .[id number] CHAPO Pantoprazole Sodium 40 mg 03/19/19 09:00 03/20/19 08:49 Protonix PO 40 mg DAILY CHAPO Administration Pantoprazole Sodium 40 mg 03/19/19 09:00 03/20/19 08:51 Protonix PO Not Given DAILY CHAPO Rifaximin 550 mg 03/18/19 21:00 03/20/19 08:49 Xifaxan PO 550 mg BID CHAPO Administration Simvastatin 10 mg 03/18/19 21:00 03/19/19 20:31 Zocor PO 10 mg HS CHAPO Administration Sodium Chloride 10 ml 03/18/19 21:00 03/20/19 08:51 Flush - Normal Saline IVF Not Given Q12HR CHAPO - Exam Eye: PERRL, anicteric sclera ENT: no oropharyngeal lesions, dry oral mucosa Neck: supple, no JVD Heart: RRR, no murmur Respiratory: no wheezes, no rales Gastrointestinal: soft, non-tender, normal bowel sounds, distended Extremities: no cyanosis, 1+ LE edema Neurological: cranial nerve grossly intact, no focal deficits Hosp A/P (1) Hepatorenal syndrome Code(s): K76.7 - HEPATORENAL SYNDROME Status: Acute (2) Ascites Code(s): R18.8 - OTHER ASCITES Status: Acute (3) Cirrhosis Code(s): K74.60 - UNSPECIFIED CIRRHOSIS OF LIVER Status: Chronic Qualifiers: Hepatic cirrhosis type: unspecified hepatic cirrhosis Ascites presence: with ascites Qualified Code(s): K74.60 - Unspecified cirrhosis of liver; R18.8 - Other ascites (4) Acute exacerbation of CHF (congestive heart failure) Code(s): I50.9 - HEART FAILURE, UNSPECIFIED Status: Acute Qualifiers: Heart failure type: diastolic Qualified Code(s): I50.33 - Acute on chronic diastolic (congestive) heart failure (5) Dementia Code(s): F03.90 - UNSPECIFIED DEMENTIA WITHOUT BEHAVIORAL DISTURBANCE Status: Chronic Qualifiers: Dementia type: unspecified type (6) HTN (hypertension) Code(s): I10 - ESSENTIAL (PRIMARY) HYPERTENSION Status: Chronic Qualifiers: Hypertension type: essential hypertension Qualified Code(s): I10 - Essential (primary) hypertension (7) Dyslipidemia Code(s): E78.5 - HYPERLIPIDEMIA, UNSPECIFIED Status: Chronic - Plan is on alb infusions, renal function is holding up is on asp, coreg, imdur, hydralazine, xifaxan, octreotide drip and oral iron hemostable d/w daughter and at bedside plan is to aim for dc on sunday evening so he can attend his nephew's wedding with family gathering on sunday. Palliative care got oversedated with cheyanne, has been dc'd now
[2019-03-20] MEDS: Octreotide Acetate 1,250 MCG in Sodium Chloride 0.9% 250 ML 250 ML IVPB SCH (20:15)
[2019-03-20] MEDS: Simvastatin 5 MG TAB PO SCH (20:16)
[2019-03-20] MEDS: Carvedilol 3.125 MG TAB PO SCH (20:16)
[2019-03-20] MEDS ORDERED: Melatonin 3 MG TAB PO PRN (21:45)
[2019-03-21] MEDS: Carvedilol 3.125 MG TAB PO SCH (05:24)
[2019-03-21 06:20] LABS: #Eosinphils 0.2 thou/uL (0.0-0.7); #Lymphocytes 0.4 thou/uL (1.20-3.40); #Monocytes 0.6 thou/uL (0.11-0.59); #Neutrophils 3.5 thou/uL (1.40-6.50); %Basophils 0.7 % (0.0-1.0); %Eosinophils 5.3 % (0.0-10.0); %Lymphocytes 7.4 % (21.0-51.0); %Monocytes 11.7 % (0.0-10.0); %Neutrophils 74.8 % (42.0-75.0); Hemoglobin 8.9 g/dL (14.0-18.0); Mean Corpuscular HGB CONC 32.9 g/dL (32.0-36.0); Mean Corpuscular Hemoglobin 35.5 pg (27.0-31.0); Mean Platelet Volume 9.1 fL (7.4-10.4); RBC Distribution Width 13.7 % (11.5-14.5); Red Blood Cell (RBC) Count 2.51 mill/uL (4.70-6.10); White Blood Cell (WBC) Count 4.7 thou/uL (4.8-10.8)
[2019-03-21 06:25] LABS: Platelet Count 71 thou/uL (130-400)
[2019-03-21 06:37] LABS: Anion Gap 11 mmol/L (10-20); BUN (Urea Nitrogen) 73 mg/dL (8.4-25.7); Calc. Creatinine Clearance 20 mL/min (70-130); Calcium 8.5 mg/dL (7.8-10.44); Carbon Dioxide 15 mmol/L (23-31); Chloride 116 mmol/L (98-107); Estimated GFR-MDRD 22; Glucose 95 mg/dL (83-110); Potassium 5.3 mmol/L (3.5-5.1); Sodium 137 mmol/L (136-145)
[2019-03-21] MEDS ORDERED: Sodium Bicarbonate 2.5 MEQ/5 ML VIAL ONE (08:09)
--- NOTE | 2019-03-21 10:13 | ULT ---
ULTRASOUND DOPPLER DUPLEX VENOUS BILATERAL LOWER EXTREMITIES: DATE: 03/21/2019 HISTORY: 83-year-old male with bilateral lower extremity pain TECHNIQUE: Grayscale, color-flow, and spectral analysis, of major veins of bilateral lower extremities. FINDINGS: There is demonstration of blood flow with normal compressibility, of the bilateral common femoral, pr ofunda femoral, greater saphenous, femoral, popliteal, and posterior tibial, veins. The pulse Doppler waveforms are pulsatile. There is mild edema in the superficial soft tissues bilaterally. IMPRESSION: 1. No deep venous thrombosis of bilateral lower extremities. 2. Bilateral lower extremity edema. 3. Increased cardiac transmission of pulse Doppler waveforms is suggestive of congestive heart failanais e.
[2019-03-21] MEDS: Rifaximin 550 MG TAB PO SCH (10:56)
[2019-03-21] MEDS: hydrALAZINE 25 MG TAB PO SCH (10:57)
[2019-03-21] MEDS: Ferrous Sulfate 325 MG TAB PO SCH ×2 (10:57→10:58)
[2019-03-21] MEDS: Aspirin Chewable 81 MG TAB PO SCH (10:57)
--- NOTE | 2019-03-21 12:56 | ULT ---
Ultrasound-guided paracentesis: HISTORY: Symptomatic ascites FINDINGS: Informed consent obtained prior to the procedure. Preprocedural imaging demonstrated intrap eritoneal free fluid. An area was marked in the Right lower quadrant , and then meticulously prepped and draped in normal s terile fashion and anesthetized with 1% buffered lidocaine. With direct sonographic guidance, a 19-gauge needle and 5 Hungarian Yueh catheter were advanced into the abdomen. After the return of fluid, the catheter was advanced, and the needle was removed. Approximately 4.45 L of clear straw-colored fluid was aspirated. The introducer sheath was removed, and hemostasis was achieved with direct pressure. A dry sterile dressing was placed. The patient tolerated the procedure well and without immediate complication. IMPRESSION: Technically successful ultrasound-guided paracentesis.
[2019-03-21 16:15] VITALS: BP 148/65; TEMP 98.3
--- NOTE | 2019-03-21 17:29 | PRG ---
DATE OF SERVICE: 03/21/2019 SUBJECTIVE: Mr. Victoria feels better today, much more alert and awake. He did not get any sedatives or sleep aids last night. He is planning on going home today to go to his grandson's wedding on Sunday. The family has decided to go with home health and possibly hospice to be on how that goes at home. He decided he does not want dialysis. OBJECTIVE: VITAL SIGNS: Temperature is 98, pulse 83, blood pressure is 148/65. ABDOMEN: Protuberant with shifting dullness and fluid wave less so than yesterday. EXTREMITIES: There is no peripheral edema. NEUROLOGIC: He is alert and oriented. LABORATORY DATA: White count 4.7, hemoglobin 8.9, and platelet count 71,000. Sodium 137, potassium 5.3, and BUN and creatinine 73 and 2.8, down from 78 and 3.5 on admission. ASSESSMENT: Prerenal azotemia. This probably has a component of hepatorenal and also a component of intravascular volume depletion related to his cirrhosis. He has been getting albumin with his paracentesis since the beginning. His diuretics have now been held. He does have a component of right heart failure as well. At this time, the patient and family understand he really has not been completely resuscitated, but they want to get out to go his grandson's wedding. He has made decisions for DNR status and he is contemplating hospice care at this time. RECOMMENDATIONS: If he is going to go home, I would change home medicine doses to what Dr. Michelle adjusted the medications to in terms of cardiac medications. At this time, I would hold off any Lasix or Aldactone. He is set up for a therapeutic paracentesis next . He will probably need weekly paracentesis with albumin. He is getting 50 g of albumin with each paracentesis. If he has decompensation, may come back to the hospital. They understand this option. Job ID: [id number]
--- NOTE | 2019-03-22 01:58 | DIS ---
DATE OF ADMISSION: 03/18/2019 DATE OF DISCHARGE: 03/21/2019 DISCHARGE DISPOSITION: To home. 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 PROCEDURES DONE DURING HOSPITALIZATION: The patient has had paracentesis done on 03/18/2019 with removal of 4.1 L of clear straw-colored fluid. Echo with 2D Doppler showed an EF of 60% to 65%. There is impaired diastolic dysfunction, moderate mitral regurgitation. RV systolic pressures were 77 mmHg consistent with [id number] pulmonary hypertension. IVC was dilated. He has had repeat paracentesis done this morning with removal of 4.45 L of clear straw-colored fluid. Histopathology of the ascitic fluid has not revealed any malignant cells, benign mesothelial cells seen. White count of 4, H and H of 9 and 27, platelet count is 71, MCV is 108 with 74% neutrophils. PT/INR 16 and 1.3, BUN 73, creatinine 2.8 on the day of discharge. Serum bicarb 15, albumin is 3.6, total bilirubin is 0.8. AST, ALT, alkaline phosphatase are within normal limits. Admitting BUN and creatinine were 78 and 3.5. BNP 1977. INPATIENT CONSULT: Dr. Murrell for Gastroenterology, Dr. Benavides for Nephrology. DISCHARGE MEDICATIONS: 1. Aspirin 81 mg p.o. daily. 2. Ferrous sulfate 325 mg p.o. daily. 3. Prilosec 40 mg p.o. daily. 4. Coreg 3.125 mg p.o. twice daily. 5. Hydralazine 100 mg twice daily. 6. Imdur 120 mg p.o. daily. ALLERGIES: NO KNOWN DRUG ALLERGIES. DISCHARGE PLAN: The patient will follow up with Dr. Benavides on either Sunday or Sunday. He will have a therapeutic paracentesis which has been set up for next with albumin infusion. He needs to follow up with his primary care physician, Dr. Tam in 1 week. BRIEF COURSE DURING HOSPITALIZATION: The patient initially got admitted on the with creatinine of around 4 and hepatorenal syndrome with idiopathic cirrhosis and ascites. He has had paracentesis done with albumin infusions. He has had a total of 8.5 L of ascitic fluid removed on two occasions during his stay here. He also had gentle hydration done. His discharge creatinine is around 2.8. The patient tolerated both paracentesis well. His blood pressure is holding up. His renal function is slowly trending down. His overall prognosis is guarded. There was suspicion of possible right heart failure contributing to his cirrhosis and ascites. His medications were optimized by Dr. Michelle. His hydralazine was changed from 50-100 twice daily and the patient was taken off dinitrate and was placed on mononitrate 120 mg daily. His nephew is getting tomorrow and there is a family get-together which patient wants to be there. In view of this and overall guarded prognosis, the patient is being discharged home. If he gets decompensated, he is advised to come to the ER. [facility] has seen the patient and will be visiting him at home. Please see a [id number] documentation for the day of discharge on [employer]. Job ID: [id number] MTDD
== END 2019-03-21 17:47 | disposition home health service (06) | DRG 441 ==
LOC: ERS 09:05 → T4-A 10:32
PROVIDERS: ADMIT Internal Medicine; ATTEND Internal Medicine
PROC: 0W9G3ZZ Drainage of Peritoneal Cavity, Percutaneous Approach (ICD-10-PCS; principal; 2019-03-18)
DX: K76.7 Hepatorenal syndrome (principal); I50.33 Acute on chronic diastolic (congestive) heart failure; N17.9 Acute kidney failure, unspecified; R18.8 Other ascites; I13.0 Hypertensive heart and chronic kidney disease with heart failure and stage 1 through stage 4 chronic kidney disease, or unspecified chronic kidney disease; I25.10 Atherosclerotic heart disease of native coronary artery without angina pectoris; K72.90 Hepatic failure, unspecified without coma; Z51.5 Encounter for palliative care; E78.5 Hyperlipidemia, unspecified; K21.9 Gastro-esophageal reflux disease without esophagitis; E11.21 Type 2 diabetes mellitus with diabetic nephropathy; N18.9 Chronic kidney disease, unspecified; R79.89 Other specified abnormal findings of blood chemistry; K74.69 Other cirrhosis of liver; F03.90 Unspecified dementia, unspecified severity, without behavioral disturbance, psychotic disturbance, mood disturbance, and anxiety; Z98.49 Cataract extraction status, unspecified eye; E87.5 Hyperkalemia; Z95.1 Presence of aortocoronary bypass graft; Z95.2 Presence of prosthetic heart valve
CPT/HCPCS: 36415; 36416; 49083; 71045; 80048; 80053; 82140; 82150; 83690; 83880; 85025; 85060; 85610; 87070; 87205; 88112; 88305; 89051; 90471; 90662; 93005; 93306; 93970; 96374; G0008; J1956; J2354; J7050; P9047; Q5105

== ENCOUNTER 2019-03-27 07:51 | Day surgery (SDC) | payer MEDICARE, BC ==
[2019-03-27] MEDS ORDERED: Albumin 25% 200 ML ONE (08:05)
[2019-03-27] MEDS ORDERED: Sodium Bicarbonate 2.5 MEQ/5 ML VIAL ONE (08:08)
[2019-03-27 08:18] LABS: Anion Gap 11 mmol/L (10-20); BUN (Urea Nitrogen) 68 mg/dL (8.4-25.7); Calc. Creatinine Clearance 0 mL/min (70-130); Calcium 9.1 mg/dL (7.8-10.44); Carbon Dioxide 18 mmol/L (23-31); Chloride 115 mmol/L (98-107); Estimated GFR-MDRD 22; Glucose 143 mg/dL (83-110); Potassium 5.2 mmol/L (3.5-5.1); Sodium 139 mmol/L (136-145)
--- NOTE | 2019-03-27 10:21 | ULT ---
Exam: Ultrasound guided paracentesis HISTORY: Ascites COMPARISON: 03/21/2019 FINDINGS: Successful ultrasound-guided paracentesis. Total of 3.5 L of yellow color ascites was aspir ated. TECHNIQUE: Consent obtained reformatory ultrasound-guided paracentesis. Right lower quadrant was deem ed appropriate. Skin was prepped and draped in a sterile fashion. 1% lidocaine, buffered with sodium bicarbonate was used for local anesthesia. Under ultrasound guidance, a 5 Lebanese 7 cm Yueh cat heter is advanced in the peritoneal space. A total of 3.5 L of yellow color ascites was aspirated. No immediate or postprocedural complications IMPRESSION: Successful ultrasound-guided paracentesis.
[2019-03-27 12:40] VITALS: BMI 23.4
[2019-03-27 12:42] VITALS: BP 172/70; TEMP 97.5
== END 2019-03-27 09:50 | disposition home or self-care (01) ==
LOC: ULT 07:51
PROVIDERS: ATTEND Internal Medicine Gastroenterology
PROC: 0W9G3ZZ Drainage of Peritoneal Cavity, Percutaneous Approach (ICD-10-PCS; principal; 2019-03-27)
DX: K74.60 Unspecified cirrhosis of liver (principal); R18.8 Other ascites; I13.0 Hypertensive heart and chronic kidney disease with heart failure and stage 1 through stage 4 chronic kidney disease, or unspecified chronic kidney disease; E11.22 Type 2 diabetes mellitus with diabetic chronic kidney disease; N18.9 Chronic kidney disease, unspecified; D63.1 Anemia in chronic kidney disease; I50.810 Right heart failure, unspecified; Z79.82 Long term (current) use of aspirin; Z79.899 Other long term (current) drug therapy; Z95.1 Presence of aortocoronary bypass graft
CPT/HCPCS: 49083; 80048; P9047; 36415

== ENCOUNTER 2019-04-03 12:10 | Day surgery (SDC) | payer MEDICARE, BC ==
[2019-04-02 12:21] VITALS: BMI 23.4
[2019-04-03] MEDS ORDERED: Albumin 25% 200 ML ONE (12:42)
[2019-04-03 14:38] VITALS: BP 155/68; TEMP 97.3
--- NOTE | 2019-04-03 15:00 | ULT ---
PROCEDURE: Ultrasound guided abdominal paracentesis. INDICATION: Recurrent ascites. FINDINGS: 3 liters of yellowish-clear ascitic fluid removed from right lower quadrant. PROCEDURE NOTE: Four quadrant ultrasound shows moderate volume ascites. Right lower quadrant chosen for puncture. Ski n prepped and draped in the sterile manner. Local anesthesia administered with lidocaine. Tiny skin n ick made with scalpel. 5 Fijian Yueh catheter and needle was introduced under ultrasound guidance int o the fluid in the right lower quadrant. Catheter was attached to suction drainage. 3 liters of ascit ic fluid removed. Postprocedure ultrasound shows low volume of residual ascites. There were no proble ms or complications. POS: OFF
== END 2019-04-03 14:20 | disposition home or self-care (01) ==
LOC: ULT 12:10
PROVIDERS: ATTEND Internal Medicine Gastroenterology
PROC: 0W9G3ZZ Drainage of Peritoneal Cavity, Percutaneous Approach (ICD-10-PCS; principal; 2019-04-03)
DX: K74.60 Unspecified cirrhosis of liver (principal); R18.8 Other ascites; I11.0 Hypertensive heart disease with heart failure; E11.22 Type 2 diabetes mellitus with diabetic chronic kidney disease; N18.9 Chronic kidney disease, unspecified; I50.810 Right heart failure, unspecified; N17.9 Acute kidney failure, unspecified; I25.10 Atherosclerotic heart disease of native coronary artery without angina pectoris; Z79.82 Long term (current) use of aspirin; Z79.899 Other long term (current) drug therapy
CPT/HCPCS: 49083; P9047

== ENCOUNTER 2019-04-10 08:06 | Day surgery (SDC) | payer MEDICARE, BC ==
[2019-04-09 15:02] VITALS: BMI 23.4
[2019-04-10] MEDS ORDERED: Sodium Bicarbonate 2.5 MEQ/5 ML VIAL ONE (08:26)
[2019-04-10] MEDS ORDERED: Albumin 25% 200 ML ONE (08:26)
--- NOTE | 2019-04-10 10:17 | ULT ---
Exam: Ultrasound guided paracentesis HISTORY: Ascites COMPARISON: 04/03/2019 FINDINGS: Successful ultrasound-guided paracentesis. Total of 4 L of jacy color ascites was aspirate d. TECHNIQUE: Consent obtained reformatory ultrasound-guided paracentesis. Right lower quadrant was deem ed appropriate. Skin was prepped and draped in a sterile fashion. 1% lidocaine, buffered with sodium bicarbonate was used for local anesthesia. Under ultrasound guidance, a 5 Romansh 7 cm Yueh cat heter is advanced in the peritoneal space. A total of 4 L of jacy color ascites was aspirated. No immediate or postprocedural complications IMPRESSION: Successful ultrasound-guided paracentesis.
[2019-04-10 10:31] VITALS: BP 169/67; TEMP 97.7
== END 2019-04-10 10:15 | disposition home or self-care (01) ==
LOC: ULT 08:06
PROVIDERS: ATTEND Internal Medicine Gastroenterology
PROC: 0W9G3ZZ Drainage of Peritoneal Cavity, Percutaneous Approach (ICD-10-PCS; principal; 2019-04-10)
DX: K74.60 Unspecified cirrhosis of liver (principal); R18.8 Other ascites; I13.0 Hypertensive heart and chronic kidney disease with heart failure and stage 1 through stage 4 chronic kidney disease, or unspecified chronic kidney disease; E11.22 Type 2 diabetes mellitus with diabetic chronic kidney disease; N18.9 Chronic kidney disease, unspecified; I50.9 Heart failure, unspecified; I25.10 Atherosclerotic heart disease of native coronary artery without angina pectoris; Z79.82 Long term (current) use of aspirin; Z79.899 Other long term (current) drug therapy
CPT/HCPCS: 49083; 80053; 85025; P9047; 36415

== ENCOUNTER 2019-04-17 07:55 | Day surgery (SDC) | payer MEDICARE, BC ==
[2019-04-16 10:32] VITALS: BMI 23.8
[2019-04-17] MEDS ORDERED: Albumin 25% 200 ML ONE (08:11)
[2019-04-17] MEDS ORDERED: Sodium Bicarbonate 2.5 MEQ/5 ML VIAL ONE (08:11)
[2019-04-17] MEDS ORDERED: FLU VACC TS2019-20(65YR UP)/PF 180 MCG/0.5 ML SYRINGE IM ONE (10:45)
[2019-04-17 11:34] VITALS: BP 161/68; TEMP 98
--- NOTE | 2019-04-17 12:17 | ULT ---
Ultrasound-guided paracentesis: HISTORY: Symptomatic ascites FINDINGS: Informed consent obtained prior to the procedure. Preprocedural imaging demonstrated intrap eritoneal free fluid. An area was marked in the Right lower quadrant , and then meticulously prepped and draped in normal s terile fashion and anesthetized with 1% buffered lidocaine. With direct sonographic guidance, a 19-gauge needle and 5 Turkmen Yueh catheter were advanced into the abdomen. After the return of fluid, the catheter was advanced, and the needle was removed. Approximately 4.05 L of clear straw-colored fluid was aspirated. The introducer sheath was removed, and hemostasis was achieved with direct pressure. A dry sterile dressing was placed. The patient tolerated the procedure well and without immediate complication. IMPRESSION: Technically successful ultrasound-guided paracentesis.
== END 2019-04-17 09:23 | disposition home or self-care (01) ==
LOC: ULT 07:55
PROVIDERS: ATTEND Internal Medicine Gastroenterology
DX: K74.60 Unspecified cirrhosis of liver (principal); I13.0 Hypertensive heart and chronic kidney disease with heart failure and stage 1 through stage 4 chronic kidney disease, or unspecified chronic kidney disease; I50.810 Right heart failure, unspecified; E11.22 Type 2 diabetes mellitus with diabetic chronic kidney disease; N18.9 Chronic kidney disease, unspecified; D63.1 Anemia in chronic kidney disease; N17.9 Acute kidney failure, unspecified; I25.10 Atherosclerotic heart disease of native coronary artery without angina pectoris; Z79.82 Long term (current) use of aspirin; Z79.899 Other long term (current) drug therapy
CPT/HCPCS: 49083; 80048; P9047; 36415

== ENCOUNTER 2019-04-24 07:54 | Day surgery (SDC) | payer MEDICARE, BC ==
[2019-04-23 15:26] VITALS: BMI 23.4
[2019-04-24] MEDS ORDERED: Sodium Bicarbonate 2.5 MEQ/5 ML VIAL ONE (07:56)
[2019-04-24] MEDS ORDERED: Albumin 25% 200 ML ONE (07:56)
[2019-04-24 08:16] LABS: INR-International Normal Ratio 1.3; PTT 32.5 SEC (22.9-36.1); Prothrombin Time 16.6 SEC (12.0-14.7)
[2019-04-24 10:00] VITALS: BP 138/61; TEMP 97.8
--- NOTE | 2019-04-24 11:01 | ULT ---
Ultrasound-guided paracentesis: HISTORY: Cirrhosis and ascites. FINDINGS: Informed consent obtained prior to the procedure. Preprocedural imaging demonstrated intrap eritoneal free fluid. An area was marked in the right mid abdomen in the mid axillary line, and then meticulously prepped a nd draped in normal sterile fashion and anesthetized with 1% buffered lidocaine. With direct sonographic guidance, a 19-gauge needle and 5 Ugandan Yueh catheter were advanced into the abdomen. After the return of fluid, the catheter was advanced, and the needle was removed. Approximately 3 L of clear straw-colored fluid was aspirated. The introducer sheath was removed, and hemostasis was achieved with direct pressure. A dry sterile dressing was placed. The patient tolerated the procedure well and without immediate complication. IMPRESSION: Technically successful ultrasound-guided paracentesis.
== END 2019-04-24 09:45 | disposition home or self-care (01) ==
LOC: ULT 07:54
PROVIDERS: ATTEND Internal Medicine Gastroenterology
DX: K74.60 Unspecified cirrhosis of liver (principal); R18.8 Other ascites; I13.0 Hypertensive heart and chronic kidney disease with heart failure and stage 1 through stage 4 chronic kidney disease, or unspecified chronic kidney disease; E11.22 Type 2 diabetes mellitus with diabetic chronic kidney disease; N18.9 Chronic kidney disease, unspecified; I50.810 Right heart failure, unspecified; N17.9 Acute kidney failure, unspecified; D63.1 Anemia in chronic kidney disease; I25.10 Atherosclerotic heart disease of native coronary artery without angina pectoris; Z79.82 Long term (current) use of aspirin; Z79.899 Other long term (current) drug therapy
CPT/HCPCS: 49083; 85610; 85730; P9047; 36415

== ENCOUNTER 2019-05-02 09:55 | Day surgery (SDC) | payer MEDICARE, BC ==
[2019-05-02] MEDS ORDERED: Albumin 25% 200 ML ONE (13:22)
--- NOTE | 2019-05-02 13:46 | ULT ---
Exam: Ultrasound guided paracentesis HISTORY: Ascites COMPARISON: 04/24/2019 FINDINGS: Successful ultrasound-guided paracentesis. Total of 2700 mL of yellow color ascites was asp irated. TECHNIQUE: Consent obtained reformatory ultrasound-guided paracentesis. Right lower quadrant was deem ed appropriate. Skin was prepped and draped in a sterile fashion. 1% lidocaine, buffered with sodium bicarbonate was used for local anesthesia. Under ultrasound guidance, a 5 Burundian 7 cm Yueh cat heter is advanced in the peritoneal space. A total of 2700 mL of yellow color ascites was aspirated. No immediate or postprocedural complications IMPRESSION: Successful ultrasound-guided paracentesis.
[2019-05-02 16:59] VITALS: BP 135/59; TEMP 97.6
== END 2019-05-02 12:40 | disposition home or self-care (01) ==
LOC: ULT 09:55
PROVIDERS: ATTEND Internal Medicine Gastroenterology
DX: K74.60 Unspecified cirrhosis of liver (principal); R18.8 Other ascites; I11.0 Hypertensive heart disease with heart failure; I50.810 Right heart failure, unspecified; E11.9 Type 2 diabetes mellitus without complications; N17.9 Acute kidney failure, unspecified; Z95.5 Presence of coronary angioplasty implant and graft
CPT/HCPCS: 49083; P9047

== ENCOUNTER 2019-05-08 07:59 | Day surgery (SDC) | payer MEDICARE, BC ==
[2019-05-08] MEDS ORDERED: Sodium Bicarbonate 2.5 MEQ/5 ML VIAL ONE (08:03)
[2019-05-08] MEDS ORDERED: Albumin 25% 200 ML ONE (08:03)
[2019-05-08 09:38] VITALS: BMI 23.8
[2019-05-08 09:39] VITALS: BP 153/85; TEMP 97.8
--- NOTE | 2019-05-08 10:41 | ULT ---
Exam: Ultrasound guided paracentesis HISTORY: Ascites COMPARISON: May 02, 2019 FINDINGS: Successful ultrasound-guided paracentesis. Total of 3250 cc of normal appearingascites was aspirated. TECHNIQUE: Consent obtained reformatory ultrasound-guided paracentesis. Right lower quadrant was deem ed appropriate. Skin was prepped and draped in a sterile fashion. 1% lidocaine, buffered with sodium bicarbonate was used for local anesthesia. Under ultrasound guidance, a 5 Samoan 7 cm Yueh cat heter is advanced in the peritoneal space. A total of 3250 cc of normal appearingascites was aspirated. No immediate or postprocedural complications IMPRESSION: Successful ultrasound-guided paracentesis.
== END 2019-05-08 09:15 | disposition home or self-care (01) ==
LOC: ULT 07:59
PROVIDERS: ATTEND Internal Medicine Gastroenterology
DX: R18.8 Other ascites (principal)
CPT/HCPCS: 49083; P9047

== ENCOUNTER 2019-05-14 09:53 | Day surgery (SDC) | payer MEDICARE, BC ==
[2019-05-13 15:22] VITALS: BMI 23.4
[2019-05-14] MEDS ORDERED: Albumin 25% 200 ML ONE (10:36)
--- NOTE | 2019-05-14 11:47 | ULT ---
Sonographic guided paracentesis HISTORY: Recurrent ascites. FINDINGS: After explaining the procedure and answering all questions, sonographic survey shows large amount of free fluid throughout the abdomen. Sterile technique, buffered local anesthesia, sonographic guidance, and a right lower quadrant approach were used to carefully advance a 19-gauge Y ueh needle and catheter into the free fluid. Catheter was left to drain a total volume of 2.75 L slightly cloudy yellow liquid. Catheter was removed with minimal fluid remaining. Patient tolerated t he procedure well and was dismissed in good condition. IMPRESSION: Technically successful sonographic guided paracentesis.
[2019-05-14 12:31] VITALS: BP 155/63; TEMP 97.5
== END 2019-05-14 11:45 | disposition home or self-care (01) ==
LOC: ULT 09:53
PROVIDERS: ATTEND Internal Medicine Gastroenterology
PROC: 0W9G3ZZ Drainage of Peritoneal Cavity, Percutaneous Approach (ICD-10-PCS; principal; 2019-05-14)
DX: K74.60 Unspecified cirrhosis of liver (principal); R18.8 Other ascites; I13.0 Hypertensive heart and chronic kidney disease with heart failure and stage 1 through stage 4 chronic kidney disease, or unspecified chronic kidney disease; E11.22 Type 2 diabetes mellitus with diabetic chronic kidney disease; N18.9 Chronic kidney disease, unspecified; I50.9 Heart failure, unspecified; I25.10 Atherosclerotic heart disease of native coronary artery without angina pectoris; Z79.82 Long term (current) use of aspirin; Z79.899 Other long term (current) drug therapy
CPT/HCPCS: 49083; P9047

== ENCOUNTER 2019-05-23 08:18 | Day surgery (SDC) | payer MEDICARE, BC ==
[2019-05-22 14:33] VITALS: BMI 23.4
[2019-05-23] MEDS ORDERED: Albumin 25% 200 ML ONE (08:26)
--- NOTE | 2019-05-23 09:32 | ULT ---
PREPROCEDURE DIAGNOSIS: Ascites POST PROCEDURE DIAGNOSIS: Same PROCEDURE: Ultrasound-guided paracentesis WAREHOUSE MANAGER: Raman ANESTHESIA: 6 mL of buffered 1% lidocaine. SPECIMEN: 3.6 L of straw-colored fluid TECHNIQUE: Prior to the procedure, the risks and benefits of an ultrasound guided paracentesis were explained to the patient which consented fully to the procedure. The area of the largest fluid collection was seen in the right lower quadrant of the abdomen. This a sharon was prepped and draped in the usual sterile fashion. Lidocaine was used to anesthetize the skin and soft tissues down towards the peritoneal cavity. The p eritoneum was anesthetized. A small skin incision was made for passage of the [employer] needle and catheter. This device was then placed using ultrasound guidance into the peritoneal cavity. The needle was removed after return of fluid. The catheter was then connected to multiple Vacutainer bottles. A total of 3.6 L was removed. No residual fluid is seen in this region of the peritoneal cavity. IMPRESSION: Status post successful ultrasound-guided paracentesis
[2019-05-23 10:22] VITALS: BP 141/59; TEMP 97.7
== END 2019-05-23 09:48 | disposition home or self-care (01) ==
LOC: ULT 08:18
PROVIDERS: ATTEND Internal Medicine Gastroenterology
PROC: 0W9G3ZZ Drainage of Peritoneal Cavity, Percutaneous Approach (ICD-10-PCS; principal; 2019-05-23)
DX: R18.8 Other ascites (principal); Z79.82 Long term (current) use of aspirin; Z79.899 Other long term (current) drug therapy
CPT/HCPCS: 49083; P9047

== ENCOUNTER → 2019-05-29 | Day surgery (SDC) | payer MEDICARE, BC ==
[~2019-05-29] MED LIST: Albumin 25% 200 ML ONE
[2019-05-29 12:35] LABS: #Basophils 0.1 thou/uL (0.0-0.2); #Eosinphils 0.2 thou/uL (0.0-0.7); #Lymphocytes 0.5 thou/uL (1.20-3.40); #Monocytes 0.6 thou/uL (0.11-0.59); #Neutrophils 3.2 thou/uL (1.40-6.50); %Basophils 1.2 % (0.0-1.0); %Eosinophils 3.9 % (0.0-10.0); %Lymphocytes 11.3 % (21.0-51.0); %Monocytes 13.7 % (0.0-10.0); %Neutrophils 69.9 % (42.0-75.0); Hemoglobin 8.9 g/dL (14.0-18.0); Mean Corpuscular HGB CONC 33.1 g/dL (32.0-36.0); Mean Corpuscular Hemoglobin 34.9 pg (27.0-31.0); Mean Platelet Volume 8.7 fL (7.4-10.4); Platelet Count 91 thou/uL (130-400); RBC Distribution Width 13.3 % (11.5-14.5); Red Blood Cell (RBC) Count 2.54 mill/uL (4.70-6.10); White Blood Cell (WBC) Count 4.6 thou/uL (4.8-10.8)
[2019-05-29 12:43] LABS: INR-International Normal Ratio 1.4; Prothrombin Time 16.9 SEC (12.0-14.7)
--- NOTE | 2019-05-29 14:44 | ULT ---
Sonographic guided paracentesis History Beto: Recurrent ascites. FINDINGS: After explaining the procedure and answering all questions, sonographic survey shows large amount of free fluid throughout the abdomen. Sterile technique, buffered local anesthesia, sonographic guidance, and a right lower quadrant approach were used to carefully advance a 19-gauge Y ueh needle and catheter into the free fluid. Catheter was left to drain a total volume of 2.8 L slightly cloudy yellow liquid. Catheter was removed with minimal fluid remaining. Patient tolerated t he procedure well and was dismissed in good condition. IMPRESSION: Technically successful sonographic guided paracentesis.
== END ==
LOC: ULT 12:18
PROVIDERS: ATTEND Internal Medicine Gastroenterology
PROC: 0W9G3ZZ Drainage of Peritoneal Cavity, Percutaneous Approach (ICD-10-PCS; principal; 2019-05-29)
DX: K74.60 Unspecified cirrhosis of liver (principal); R18.8 Other ascites; I13.0 Hypertensive heart and chronic kidney disease with heart failure and stage 1 through stage 4 chronic kidney disease, or unspecified chronic kidney disease; E11.22 Type 2 diabetes mellitus with diabetic chronic kidney disease; N18.9 Chronic kidney disease, unspecified; I50.9 Heart failure, unspecified; Z95.1 Presence of aortocoronary bypass graft; Z95.2 Presence of prosthetic heart valve; Z79.82 Long term (current) use of aspirin
CPT/HCPCS: 49083; 85025; 85610; 85730; P9047

== ENCOUNTER 2019-06-05 08:24 | Day surgery (SDC) | payer MEDICARE, BC ==
[2019-06-04 13:51] VITALS: BMI 23.4
[2019-06-05] MEDS ORDERED: Sodium Bicarbonate 2.5 MEQ/5 ML VIAL ONE (08:29)
[2019-06-05] MEDS ORDERED: Albumin 25% 200 ML ONE (08:29)
[2019-06-05 09:09] VITALS: BP 168/76; TEMP 97.6
--- NOTE | 2019-06-05 10:31 | ULT ---
EXAM: US Hepatic Doppler PROVIDED CLINICAL HISTORY: Cirrhosis. COMPARISON: 10/30/2018 FINDINGS: The liver remains small in size with slight peripheral nodular contour and coarsened echotexture agai n likely related to patient's history of cirrhosis. No focal hepatic mass is appreciated. The spleen remains enlarged and measures 15.5 cm in length. As noted on the prior examination, gallbladder wall thickening is again seen. No gallbladder calculi are visualized. The common duct is normal in caliber measuring 0.5 cm in diameter. Visualized portions of the pancreas, and limited visualized portions of the IVC demonstrate normal so nographic appearance. Small amount of ascites is present Doppler evaluation with spectral analysis and color flow evaluation demonstrates normal directional f low in the portal, hepatic, and splenic veins. Arterial waveforms are seen in the hepatic and splenic arteries. IMPRESSION: 1. Small amount of ascites. 2. Findings most compatible with cirrhosis of the liver. 3. Splenomegaly. 4. Normal directional flow within the splenic, hepatic, and portal veins. 5. Stable gallbladder wall thickening. Differential considerations would include liver disease, hypop roteinemia, cholecystitis in the correct clinical scenario, versus other etiologies.
--- NOTE | 2019-06-05 13:03 | ULT ---
Ultrasound-guided paracentesis therapeutic: DATE: 06/05/2019 HISTORY: 84-year-old male with symptomatic ascites due to cirrhosis. TECHNIQUE: Signed informed consent obtained. Four-quadrant survey of abdomen with ultrasound. Right lower quadra nt selected. Procedure performed under ultrasound guidance using standard sterile technique. Skin prepped and draped in usual sterile fashion. 25-gauge needle used to apply buffered lidocaine. 5 Fren ch Yueh catheter advanced with stylette into the pocket of free fluid in right lower quadrant. Stylette removed. Catheter connected to evacuated bottles via plastic tubing. After drainage, cathete r removed. Patient tolerated procedure well. No complications. FINDINGS: Moderate volume of ascites prior to procedure. Intraprocedural images demonstrate Yueh catheter with stylette in the pocket of free fluid in right lower quadrant. Postdrainage image of right lower quadrant demonstrates interval decrease in volume of ascites. A total of 3400 mL of nonhemorrhagic, s traw-colored fluid was drained. IMPRESSION: Successful therapeutic paracentesis, with drainage of 3.4 L.
== END 2019-06-05 10:10 | disposition home or self-care (01) ==
LOC: ULT 08:24
PROVIDERS: ATTEND Internal Medicine Gastroenterology
PROC: 0W9G3ZZ Drainage of Peritoneal Cavity, Percutaneous Approach (ICD-10-PCS; principal; 2019-06-05)
DX: K74.60 Unspecified cirrhosis of liver (principal); R18.8 Other ascites; I13.0 Hypertensive heart and chronic kidney disease with heart failure and stage 1 through stage 4 chronic kidney disease, or unspecified chronic kidney disease; E11.22 Type 2 diabetes mellitus with diabetic chronic kidney disease; N18.9 Chronic kidney disease, unspecified; I50.9 Heart failure, unspecified; D63.1 Anemia in chronic kidney disease; I25.10 Atherosclerotic heart disease of native coronary artery without angina pectoris; Z79.82 Long term (current) use of aspirin; Z79.899 Other long term (current) drug therapy; Z95.5 Presence of coronary angioplasty implant and graft; Z95.4 Presence of other heart-valve replacement
CPT/HCPCS: 49083; 76705; P9047

== ENCOUNTER 2019-06-12 07:44 | Day surgery (SDC) | payer MEDICARE, BC ==
[2019-06-09 12:02] VITALS: BMI 23.4
[2019-06-12] MEDS ORDERED: Sodium Bicarbonate 2.5 MEQ/5 ML VIAL ONE (07:49)
[2019-06-12] MEDS ORDERED: Albumin 25% 200 ML ONE (07:49)
--- NOTE | 2019-06-12 09:43 | ULT ---
PROCEDURE: ULTRASOUND GUIDED ABDOMINAL PARACENTESIS: INDICATION: Cirrhosis with recurrent ascites. FINDINGS: 3900 cc of yellowish clear ascitic fluid removed from the right mid abdomen. Postprocedure ultrasoun d showed minimal residual ascites. PROCEDURE NOTE: Preliminary 4-quadrant ultrasound showed moderate volume ascites in all quadrants. Right mid abdomen was chosen for puncture. Overlying skin was prepped and draped in a sterile manner. Local anesthes ia was administered with Lidocaine. A tiny skin aranza was made with scalpel. A 5 Kinyarwanda [employer] cathete r with needle in place was introduced into the ascitic fluid of the right mid abdomen under ultrasoun d guidance. The needle was removed and the catheter was attached to suction drainage. 3900 cc of ye llowing clear ascitic fluid removed. There were no problems or complications. POS: OPAL
[2019-06-12 11:11] VITALS: BP 142/63; TEMP 97.8
== END 2019-06-12 09:15 | disposition home or self-care (01) ==
LOC: ULT 07:44
PROVIDERS: ATTEND Internal Medicine Gastroenterology
PROC: 0W9G3ZZ Drainage of Peritoneal Cavity, Percutaneous Approach (ICD-10-PCS; principal; 2019-06-12)
DX: K74.60 Unspecified cirrhosis of liver (principal); R18.8 Other ascites; E11.9 Type 2 diabetes mellitus without complications; I11.0 Hypertensive heart disease with heart failure; I50.9 Heart failure, unspecified; Z79.82 Long term (current) use of aspirin; Z79.899 Other long term (current) drug therapy; Z95.1 Presence of aortocoronary bypass graft; Z95.2 Presence of prosthetic heart valve
CPT/HCPCS: 49083; P9047

== ENCOUNTER 2019-06-19 07:55 | Day surgery (SDC) | payer MEDICARE, BC ==
[2019-06-19] MEDS ORDERED: Sodium Bicarbonate 2.5 MEQ/5 ML VIAL ONE (08:05)
[2019-06-19] MEDS ORDERED: Albumin 25% 200 ML ONE (08:05)
--- NOTE | 2019-06-19 08:48 | ULT ---
KUB INDICATION: Right upper quadrant abdominal pain COMPARISON: None FINDINGS: Bowel gas: The bowel gas pattern is unobstructed. There is a moderate amount retained stool within th e colon. Lung bases: Clear. Additional findings: There are cholecystectomy clips within the right upper quadrant of the abdomen. Osseous structures: No acute osseous abnormality is demonstrated. IMPRESSION: 1. Moderate amount of retained stool within the colon. 2. Cholecystectomy.
[2019-06-19 11:56] VITALS: BP 150/62; TEMP 97.6; BMI 23.4
== END 2019-06-19 09:15 | disposition home or self-care (01) ==
LOC: ULT 07:55
PROVIDERS: ATTEND Internal Medicine Gastroenterology
PROC: 0W9G3ZZ Drainage of Peritoneal Cavity, Percutaneous Approach (ICD-10-PCS; principal; 2019-06-19)
DX: K74.60 Unspecified cirrhosis of liver (principal); R18.8 Other ascites; I13.0 Hypertensive heart and chronic kidney disease with heart failure and stage 1 through stage 4 chronic kidney disease, or unspecified chronic kidney disease; E11.22 Type 2 diabetes mellitus with diabetic chronic kidney disease; N18.9 Chronic kidney disease, unspecified; I50.9 Heart failure, unspecified; I25.10 Atherosclerotic heart disease of native coronary artery without angina pectoris; Z79.82 Long term (current) use of aspirin; Z79.899 Other long term (current) drug therapy; Z95.1 Presence of aortocoronary bypass graft
CPT/HCPCS: 49083; P9047

== ENCOUNTER 2019-06-26 12:29 | Day surgery (SDC) | payer MEDICARE, BC ==
[2019-06-25 13:56] VITALS: BMI 23.8
--- NOTE | 2019-06-26 15:36 | ULT ---
Sonographic guided paracentesis HISTORY: Recurrent ascites. FINDINGS: After swelling the procedure and answering all questions, sonographic survey showed a large amount of free fluid throughout the abdomen. Sterile technique, buffered local anesthesia, sonographic guidance and a right lateral approach were used to carefully advance a 19-gauge Yueh need le and catheter into the free fluid. Catheter was left to drain a total volume of 4.1 L slightly cloudy yellow liquid. Catheter was removed with small amount of fluid remaining. Patient tolerated th e procedure well and was dismissed in good condition. IMPRESSION: Technically successful sonographic guided paracentesis.
== END 2019-06-26 14:05 | disposition home or self-care (01) ==
LOC: ULT 12:29
PROVIDERS: ATTEND Internal Medicine Gastroenterology
PROC: 0W9G3ZZ Drainage of Peritoneal Cavity, Percutaneous Approach (ICD-10-PCS; principal; 2019-06-26)
DX: K74.60 Unspecified cirrhosis of liver (principal); I11.0 Hypertensive heart disease with heart failure; I50.9 Heart failure, unspecified; E11.9 Type 2 diabetes mellitus without complications; N17.9 Acute kidney failure, unspecified; Z79.82 Long term (current) use of aspirin; Z79.899 Other long term (current) drug therapy
CPT/HCPCS: 49083

== ENCOUNTER 2019-07-03 08:40 | Day surgery (SDC) | payer MEDICARE, BC ==
[2019-07-02 16:20] VITALS: BMI 23.8
[2019-07-03 08:40] LABS: #Basophils 0.1 thou/uL (0.0-0.2); #Eosinphils 0.3 thou/uL (0.0-0.7); #Lymphocytes 0.4 thou/uL (1.20-3.40); #Monocytes 0.5 thou/uL (0.11-0.59); #Neutrophils 4.2 thou/uL (1.40-6.50); %Eosinophils 5.1 % (0.0-10.0); %Lymphocytes 7.7 % (21.0-51.0); %Monocytes 8.6 % (0.0-10.0); %Neutrophils 77.6 % (42.0-75.0); Hemoglobin 9.1 g/dL (14.0-18.0); Mean Corpuscular HGB CONC 32.4 g/dL (32.0-36.0); Mean Platelet Volume 8.7 fL (7.4-10.4); Platelet Count 85 thou/uL (130-400); RBC Distribution Width 13.5 % (11.5-14.5); Red Blood Cell (RBC) Count 2.69 mill/uL (4.70-6.10); White Blood Cell (WBC) Count 5.3 thou/uL (4.8-10.8)
[2019-07-03 08:41] LABS: INR-International Normal Ratio 1.4; PTT 33.3 SEC (22.9-36.1)
[2019-07-03] MEDS ORDERED: Albumin 25% 200 ML ONE (09:20)
--- NOTE | 2019-07-03 10:41 | ULT ---
Exam: Ultrasound guided paracentesis HISTORY: Ascites COMPARISON: 06/26/2019 FINDINGS: Successful ultrasound-guided paracentesis. Total of 4.8 L of yellow color ascites was aspir ated. TECHNIQUE: Consent obtained reformatory ultrasound-guided paracentesis. Right lower quadrant was deem ed appropriate. Skin was prepped and draped in a sterile fashion. 1% lidocaine, buffered with sodium bicarbonate was used for local anesthesia. Under ultrasound guidance, a 5 Armenian 7 cm Yueh cat heter is advanced in the peritoneal space. A total of 4.8 L of yellow color ascites was aspirated. No immediate or postprocedural complications IMPRESSION: Successful ultrasound-guided paracentesis.
[2019-07-03 11:00] VITALS: BP 145/60; TEMP 97.5
== END 2019-07-03 10:15 | disposition home or self-care (01) ==
LOC: ULT 08:40
PROVIDERS: ATTEND Internal Medicine Gastroenterology
PROC: 0W9G3ZZ Drainage of Peritoneal Cavity, Percutaneous Approach (ICD-10-PCS; principal; 2019-07-03)
DX: K74.60 Unspecified cirrhosis of liver (principal); R18.8 Other ascites; I11.0 Hypertensive heart disease with heart failure; I50.9 Heart failure, unspecified; E11.9 Type 2 diabetes mellitus without complications; Z79.82 Long term (current) use of aspirin; Z79.899 Other long term (current) drug therapy; Z95.1 Presence of aortocoronary bypass graft; Z95.2 Presence of prosthetic heart valve
CPT/HCPCS: 49083; 85025; 85610; 85730; P9047; 36415

== ENCOUNTER 2019-07-10 08:26 | Day surgery (SDC) | payer MEDICARE, BC ==
[2019-07-09 08:13] VITALS: BMI 23.4
[2019-07-10] MEDS ORDERED: Albumin 25% 200 ML ONE (08:35)
[2019-07-10] MEDS ORDERED: Sodium Bicarbonate 2.5 MEQ/5 ML VIAL ONE (08:35)
[2019-07-10 09:10] VITALS: BP 148/60; TEMP 97.4
--- NOTE | 2019-07-10 13:16 | ULT ---
Ultrasound-guided paracentesis: HISTORY: Cirrhosis and ascites. FINDINGS: Informed consent obtained prior to the procedure. Preprocedural imaging demonstrated intrap eritoneal free fluid. An area was marked in the right mid abdomen in the mid axillary line, and then meticulously prepped a nd draped in normal sterile fashion and anesthetized with 1% buffered lidocaine. With direct sonographic guidance, a 19-gauge needle and 5 [place] Citizen Yueh catheter were advanced into the abdomen. After the return of fluid, the catheter was advanced, and the needle was removed. Approximately 5 L of clear straw-colored fluid was aspirated. The introducer sheath was removed, and hemostasis was achieved with direct pressure. A dry sterile dressing was placed. The patient tolerated the procedure well and without immediate complication. IMPRESSION: Technically successful ultrasound-guided paracentesis.
== END 2019-07-10 10:18 | disposition home or self-care (01) ==
LOC: ULT 08:26
PROVIDERS: ATTEND Internal Medicine Gastroenterology
PROC: 0W9G3ZZ Drainage of Peritoneal Cavity, Percutaneous Approach (ICD-10-PCS; principal; 2019-07-10)
DX: K74.60 Unspecified cirrhosis of liver (principal); R18.8 Other ascites; I13.0 Hypertensive heart and chronic kidney disease with heart failure and stage 1 through stage 4 chronic kidney disease, or unspecified chronic kidney disease; E11.22 Type 2 diabetes mellitus with diabetic chronic kidney disease; N18.9 Chronic kidney disease, unspecified; I50.9 Heart failure, unspecified; I25.10 Atherosclerotic heart disease of native coronary artery without angina pectoris; Z79.82 Long term (current) use of aspirin; Z79.899 Other long term (current) drug therapy; Z95.1 Presence of aortocoronary bypass graft
CPT/HCPCS: 49083; P9047

== ENCOUNTER 2019-07-17 07:46 | Day surgery (SDC) | payer MEDICARE, BC ==
[2019-07-17] MEDS ORDERED: Albumin 25% 200 ML ONE (08:01)
[2019-07-17] MEDS ORDERED: Sodium Bicarbonate 2.5 MEQ/5 ML VIAL ONE (08:01)
--- NOTE | 2019-07-17 09:46 | ULT ---
Ultrasound-guided paracentesis: HISTORY: Cirrhosis and recurrent ascites. FINDINGS: Informed consent obtained prior to the procedure. Preprocedural imaging demonstrated intrap eritoneal free fluid. An area was marked in the Right lower quadrant , and then meticulously prepped and draped in normal s terile fashion and anesthetized with 1% buffered lidocaine. 50 g of albumin was demonstrated during the exam intravenously as requested. With direct sonographic guidance, a 19-gauge needle and 5 [employer] catheter were advanced into the abdomen. After the return of fluid, the catheter was advanced, and the needle was removed. Approximately 5 L of clear straw-colored fluid was aspirated. The introducer sheath was removed, and hemostasis was achieved with direct pressure. A dry sterile dressing was placed. The patient tolerated the procedure well and without immediate complication. IMPRESSION: Technically successful ultrasound-guided paracentesis.
[2019-07-17 12:18] VITALS: BMI 23.8
[2019-07-17 13:28] VITALS: BP 153/65; TEMP 97.3
== END 2019-07-17 09:25 | disposition home or self-care (01) ==
LOC: ULT 07:46
PROVIDERS: ATTEND Internal Medicine Gastroenterology
PROC: 0W9G3ZZ Drainage of Peritoneal Cavity, Percutaneous Approach (ICD-10-PCS; principal; 2019-07-17)
DX: K74.60 Unspecified cirrhosis of liver (principal); R18.8 Other ascites; I13.0 Hypertensive heart and chronic kidney disease with heart failure and stage 1 through stage 4 chronic kidney disease, or unspecified chronic kidney disease; E11.22 Type 2 diabetes mellitus with diabetic chronic kidney disease; N18.9 Chronic kidney disease, unspecified; I50.9 Heart failure, unspecified; I25.10 Atherosclerotic heart disease of native coronary artery without angina pectoris; Z79.82 Long term (current) use of aspirin; Z79.899 Other long term (current) drug therapy; Z95.1 Presence of aortocoronary bypass graft; Z95.2 Presence of prosthetic heart valve
CPT/HCPCS: 49083; P9047

== ENCOUNTER 2019-07-24 10:25 | Day surgery (SDC) | payer MEDICARE, BC ==
[2019-07-23 08:14] VITALS: BMI 23.4
[2019-07-24] MEDS ORDERED: Sodium Bicarbonate 2.5 MEQ/5 ML VIAL ONE (10:36)
[2019-07-24] MEDS ORDERED: Albumin 25% 200 ML ONE (10:36)
--- NOTE | 2019-07-24 13:20 | ULT ---
Paracentesis sonographic guided HISTORY: Recurrent ascites. FINDINGS: After explaining the procedure and answering all questions, sonographic survey shows a larg e amount of free fluid throughout the abdomen. Sterile technique, buffered local anesthesia, sonographic guidance, and a right lateral approach were used to carefully advance a 19-gauge Yueh nee dle and catheter into the free fluid. Catheter was left to drain a total volume of 4.4 L clear orange fluid. Catheter was removed with minimal fluid remaining. Patient tolerated the procedure well and was dismissed in good condition. IMPRESSION: Technically successful sonographic guided paracentesis.
== END 2019-07-24 12:20 | disposition home or self-care (01) ==
LOC: ULT 10:25
PROVIDERS: ATTEND Internal Medicine Gastroenterology
PROC: 0W9G3ZZ Drainage of Peritoneal Cavity, Percutaneous Approach (ICD-10-PCS; principal; 2019-07-24)
DX: K74.60 Unspecified cirrhosis of liver (principal); R18.8 Other ascites; I13.0 Hypertensive heart and chronic kidney disease with heart failure and stage 1 through stage 4 chronic kidney disease, or unspecified chronic kidney disease; E11.22 Type 2 diabetes mellitus with diabetic chronic kidney disease; N18.9 Chronic kidney disease, unspecified; I50.9 Heart failure, unspecified; I25.10 Atherosclerotic heart disease of native coronary artery without angina pectoris; Z79.82 Long term (current) use of aspirin; Z79.899 Other long term (current) drug therapy; Z95.1 Presence of aortocoronary bypass graft; Z95.2 Presence of prosthetic heart valve
CPT/HCPCS: 49083; P9047

== ENCOUNTER 2019-07-31 08:10 | Day surgery (SDC) | payer MEDICARE, BC ==
[2019-07-30 14:25] VITALS: BMI 23.8
[2019-07-31] MEDS ORDERED: Sodium Bicarbonate 2.5 MEQ/5 ML VIAL ONE (08:56)
[2019-07-31] MEDS ORDERED: Albumin 25% 200 ML ONE (08:56)
[2019-07-31] MEDS ORDERED: Lidocaine 1% PF 5 ML VIAL ONE (08:56)
--- NOTE | 2019-07-31 10:52 | ULT ---
Exam: Ultrasound guided paracentesis HISTORY: Ascites COMPARISON: 07/24/2019 FINDINGS: Successful ultrasound-guided paracentesis. Total of 4.3 L of yellow ascites was aspirated. TECHNIQUE: Consent obtained reformatory ultrasound-guided paracentesis. Right lower quadrant was deem ed appropriate. Skin was prepped and draped in a sterile fashion. 1% lidocaine, buffered with sodium bicarbonate was used for local anesthesia. Under ultrasound guidance, a 5 Nepali 7 cm Yueh cat heter is advanced in the peritoneal space. A total of 4.3 L of yellow ascites was aspirated. No immediate or postprocedural complications IMPRESSION: Successful ultrasound-guided paracentesis.
[2019-07-31 12:28] VITALS: BP 137/60; TEMP 97.4
== END 2019-07-31 10:10 | disposition home or self-care (01) ==
LOC: ULT 08:10
PROVIDERS: ATTEND Internal Medicine Gastroenterology
PROC: 0W9G3ZZ Drainage of Peritoneal Cavity, Percutaneous Approach (ICD-10-PCS; principal; 2019-07-31)
DX: K74.60 Unspecified cirrhosis of liver (principal); R18.8 Other ascites; E11.9 Type 2 diabetes mellitus without complications; I11.0 Hypertensive heart disease with heart failure; I50.9 Heart failure, unspecified; Z79.82 Long term (current) use of aspirin; Z79.899 Other long term (current) drug therapy; Z95.1 Presence of aortocoronary bypass graft; Z95.2 Presence of prosthetic heart valve
CPT/HCPCS: 49083; P9047; J2001

== ENCOUNTER 2019-08-07 07:52 | Day surgery (SDC) | payer MEDICARE, BC ==
[2019-08-06 10:13] VITALS: BMI 23.4
[~2019-08-07 07:52] MED LIST changes: +Sodium Bicarbonate 2.5 MEQ/5 ML VIAL ONE
[2019-08-07] MEDS ORDERED: Lidocaine 1% PF 5 ML VIAL ONE (08:06)
[2019-08-07] MEDS ORDERED: Sodium Bicarbonate 2.5 MEQ/5 ML VIAL ONE (08:06)
[2019-08-07 08:13] LABS: #Eosinphils 0.3 thou/uL (0.0-0.7); #Lymphocytes 0.4 thou/uL (1.20-3.40); #Monocytes 0.3 thou/uL (0.11-0.59); #Neutrophils 2.9 thou/uL (1.40-6.50); %Basophils 0.5 % (0.0-1.0); %Eosinophils 7.3 % (0.0-10.0); %Lymphocytes 10.6 % (21.0-51.0); %Monocytes 6.8 % (0.0-10.0); %Neutrophils 74.7 % (42.0-75.0); Hemoglobin 9.2 g/dL (14.0-18.0); Mean Corpuscular HGB CONC 31.8 g/dL (32.0-36.0); Mean Corpuscular Hemoglobin 33.4 pg (27.0-31.0); Mean Platelet Volume 9.6 fL (7.4-10.4); Platelet Count 73 thou/uL (130-400); RBC Distribution Width 13.9 % (11.5-14.5); Red Blood Cell (RBC) Count 2.76 mill/uL (4.70-6.10); White Blood Cell (WBC) Count 3.9 thou/uL (4.8-10.8)
[2019-08-07 08:35] LABS: INR-International Normal Ratio 1.3; PTT 32.6 SEC (22.9-36.1); Prothrombin Time 16.6 SEC (12.0-14.7)
--- NOTE | 2019-08-07 09:50 | ULT ---
Ultrasound-guided paracentesis: 08/07/2019 HISTORY: Symptomatic ascites FINDINGS: Informed consent obtained prior to the procedure. Preprocedural imaging demonstrated signif icant ascites throughout the abdomen and pelvis. Right lower quadrant prepped and draped in normal sterile fashion and anesthetized with 1% buffered l idocaine. With direct sonographic guidance, 5 Citizen Of [place] Yueh catheter is advanced into the ascites and removal of the stylet yielded yellow fluid. 5 L were removed. The patient tolerated the procedure well. No postprocedural complications. IMPRESSION: Successful ultrasound-guided paracentesis yielding 5 L of yellow fluid.
[2019-08-07 10:12] VITALS: BP 132/56; TEMP 97.8
== END 2019-08-07 09:55 | disposition home or self-care (01) ==
LOC: ULT 07:52
PROVIDERS: ATTEND Internal Medicine Gastroenterology
PROC: 0W9G3ZZ Drainage of Peritoneal Cavity, Percutaneous Approach (ICD-10-PCS; principal; 2019-08-07)
DX: K74.60 Unspecified cirrhosis of liver (principal); R18.8 Other ascites; E11.9 Type 2 diabetes mellitus without complications; I11.0 Hypertensive heart disease with heart failure; I50.9 Heart failure, unspecified; Z79.82 Long term (current) use of aspirin; Z79.899 Other long term (current) drug therapy; Z95.1 Presence of aortocoronary bypass graft; Z95.2 Presence of prosthetic heart valve
CPT/HCPCS: 49083; 80053; 82105; 85025; 85610; 85730; P9047; 36415; J2001

== ENCOUNTER 2019-08-14 08:29 | Day surgery (SDC) | payer MEDICARE, BC ==
[2019-08-13 16:08] VITALS: BMI 23.8
[2019-08-14] MEDS ORDERED: Lidocaine 1% PF 5 ML VIAL ONE (08:38)
[2019-08-14] MEDS ORDERED: Albumin 25% 200 ML ONE (08:38)
--- NOTE | 2019-08-14 09:28 | ULT ---
US Paracentesis with Imaging History: Ascites Comparison: Paracentesis August 07, 2019 Findings: Patient was brought to the ultrasound suite. All questions were answered. Informed consent was obtained. Timeout performed. Patient's right lower quadrant was prepped and draped in normal sterile fashion. Using ultrasound rubi dance the peritoneal space was accessed. 4.3 L of straw-colored fluid was removed. Patient tolerated the procedure well without complication. Impression: Technically successful ultrasound-guided paracentesis.
[2019-08-14 09:52] VITALS: BP 138/61; TEMP 97.5
== END 2019-08-14 09:35 | disposition home or self-care (01) ==
LOC: ULT 08:29
PROVIDERS: ATTEND Internal Medicine Gastroenterology
PROC: 0W9G3ZZ Drainage of Peritoneal Cavity, Percutaneous Approach (ICD-10-PCS; principal; 2019-08-14)
DX: K74.60 Unspecified cirrhosis of liver (principal); R18.8 Other ascites; I13.0 Hypertensive heart and chronic kidney disease with heart failure and stage 1 through stage 4 chronic kidney disease, or unspecified chronic kidney disease; E11.22 Type 2 diabetes mellitus with diabetic chronic kidney disease; N18.9 Chronic kidney disease, unspecified; I50.9 Heart failure, unspecified; I25.10 Atherosclerotic heart disease of native coronary artery without angina pectoris; Z79.82 Long term (current) use of aspirin; Z79.899 Other long term (current) drug therapy; Z95.1 Presence of aortocoronary bypass graft; Z95.2 Presence of prosthetic heart valve
CPT/HCPCS: 49083; P9047; J2001

== ENCOUNTER 2019-08-21 08:21 | Day surgery (SDC) | payer MEDICARE, BC ==
[2019-08-20 14:38] VITALS: BMI 23.4
[2019-08-21] MEDS ORDERED: Lidocaine 1% PF 5 ML VIAL ONE (09:24)
[2019-08-21] MEDS ORDERED: Albumin 25% 200 ML ONE (09:24)
[2019-08-21] MEDS ORDERED: Sodium Bicarbonate 2.5 MEQ/5 ML VIAL ONE (09:24)
[2019-08-21 12:47] VITALS: BP 121/56; TEMP 97.7
--- NOTE | 2019-08-21 13:12 | ULT ---
Sonographic guided paracentesis HISTORY: Recurrent ascites. FINDINGS: After explaining the procedure and answering all questions, sonographic survey shows modera te amount of free fluid within the abdomen. Patient was reportedly not uncomfortable with today's degree of abdominal distention. Sterile technique, buffered local anesthesia, sonographic guidance, and a right lateral approach were used to carefully advance a 19-gauge Yueh needle and catheter into the free fluid. Catheter was left to drain a total volume of 4.8 L slightly cloudy yellow liquid. Catheter was removed with small amount of free fluid remaining. Patient tolerated the procedure well and was dismissed in good condition. IMPRESSION: Technically successful sonographic guided paracentesis. Initially, discussion with the patient included the possibility of less frequent scheduled paracentes es. Given the amount of fluid drained on today's exam, however, it is less likely that the patient could tolerate greater than one-week intervals.
== END 2019-08-21 10:25 | disposition home or self-care (01) ==
LOC: ULT 08:21
PROVIDERS: ATTEND Internal Medicine Gastroenterology
PROC: 0W9G3ZZ Drainage of Peritoneal Cavity, Percutaneous Approach (ICD-10-PCS; principal; 2019-08-21)
DX: K74.60 Unspecified cirrhosis of liver (principal); R18.8 Other ascites; E11.9 Type 2 diabetes mellitus without complications; I11.0 Hypertensive heart disease with heart failure; I50.9 Heart failure, unspecified; Z79.82 Long term (current) use of aspirin; Z79.899 Other long term (current) drug therapy; Z95.1 Presence of aortocoronary bypass graft; Z95.2 Presence of prosthetic heart valve
CPT/HCPCS: 49083; P9047; J2001

== ENCOUNTER 2019-08-28 08:19 | Day surgery (SDC) | payer MEDICARE, BC ==
[2019-08-27 12:15] VITALS: BMI 23.8
[~2019-08-28 08:19] MED LIST changes: -Albumin 25% 200 ML ONE; +FLU VACC TS2019-20(65YR UP)/PF 180 MCG/0.5 ML SYRINGE IM ONE; -Sodium Bicarbonate 2.5 MEQ/5 ML VIAL ONE
[2019-08-28] MEDS ORDERED: Albumin 25% 200 ML ONE (08:22)
[2019-08-28] MEDS ORDERED: Lidocaine 1% PF 5 ML VIAL ONE (08:24)
--- NOTE | 2019-08-28 10:11 | ULT ---
Ultrasound-guided therapeutic paracentesis: DATE: 08/28/2019 HISTORY: 84-year-old male with symptomatic ascites, abdominal distention, due to cirrhosis. TECHNIQUE: Signed informed consent obtained. Right lower quadrant selected. Overlying skin prepped and draped in usual sterile fashion. 25-gauge needle used to apply buffered lidocaine superficially and deeply. 5 Syrian Yueh catheter advanced into pocket of free fluid in right lower quadrant. Stylette removed. Yueh catheter connected to drainage device via plastic tubing. 4800 mL of nonhemorrhagic straw-colored fluid drained. Catheter removed. Patient tolerated procedure well. No complications. IMPRESSION: Successful paracentesis with drainage of 4.8 L of ascites fluid.
== END 2019-08-28 09:35 | disposition home or self-care (01) ==
LOC: ULT 08:19
PROVIDERS: ATTEND Internal Medicine Gastroenterology
PROC: 0W9G3ZZ Drainage of Peritoneal Cavity, Percutaneous Approach (ICD-10-PCS; principal; 2019-08-28)
PROC: BW40ZZZ Ultrasonography of Abdomen (ICD-10-PCS; 2019-08-28)
DX: K74.60 Unspecified cirrhosis of liver (principal); R18.8 Other ascites; I11.0 Hypertensive heart disease with heart failure; I50.9 Heart failure, unspecified; E11.9 Type 2 diabetes mellitus without complications; N17.9 Acute kidney failure, unspecified; K76.7 Hepatorenal syndrome; D63.1 Anemia in chronic kidney disease; I25.10 Atherosclerotic heart disease of native coronary artery without angina pectoris; E78.00 Pure hypercholesterolemia, unspecified; Z79.82 Long term (current) use of aspirin; Z79.899 Other long term (current) drug therapy; Z95.1 Presence of aortocoronary bypass graft; Z95.4 Presence of other heart-valve replacement
CPT/HCPCS: 49083; P9047; J2001

== ENCOUNTER 2019-09-04 07:55 | Day surgery (SDC) | payer MEDICARE, BC ==
[2019-09-03 11:29] VITALS: BMI 23.8
[2019-09-04] MEDS ORDERED: Albumin 25% 200 ML ONE (08:39)
[2019-09-04] MEDS ORDERED: Sodium Bicarbonate 2.5 MEQ/5 ML VIAL ONE (08:39)
[2019-09-04] MEDS ORDERED: Lidocaine 1% PF 5 ML VIAL ONE (08:39)
--- NOTE | 2019-09-04 09:50 | ULT ---
Exam: Ultrasound guided paracentesis HISTORY: Ascites COMPARISON: Prior exam dated August 28, 2019 FINDINGS: Successful ultrasound-guided paracentesis. Total of 4.5 L of slightly blood-tingedascites w as aspirated. TECHNIQUE: Consent obtained reformatory ultrasound-guided paracentesis. Right lower quadrant was deem ed appropriate. Skin was prepped and draped in a sterile fashion. 1% lidocaine, buffered with sodium bicarbonate was used for local anesthesia. Under ultrasound guidance, a 5 Angolan 7 cm Yueh cat heter is advanced in the peritoneal space. A total of 4.5 L of slightly blood-tingedascites was aspirated. No immediate or postprocedural complications IMPRESSION: Successful ultrasound-guided paracentesis.
[2019-09-04 10:05] VITALS: BP 153/62; TEMP 97.7
== END 2019-09-04 09:45 | disposition home or self-care (01) ==
LOC: ULT 07:55
PROVIDERS: ATTEND Internal Medicine Gastroenterology
PROC: 0W9G3ZZ Drainage of Peritoneal Cavity, Percutaneous Approach (ICD-10-PCS; principal; 2019-09-04)
DX: K74.60 Unspecified cirrhosis of liver (principal); R18.8 Other ascites; I11.0 Hypertensive heart disease with heart failure; I50.9 Heart failure, unspecified; E11.9 Type 2 diabetes mellitus without complications; Z79.82 Long term (current) use of aspirin; Z79.899 Other long term (current) drug therapy; Z95.1 Presence of aortocoronary bypass graft; Z95.2 Presence of prosthetic heart valve
CPT/HCPCS: 49083; J2001; P9047

== ENCOUNTER 2019-09-11 07:57 | Day surgery (SDC) | payer MEDICARE, BC ==
[2019-09-10 11:30] VITALS: BMI 23.8
[2019-09-11 08:21] LABS: #Basophils 0.1 thou/uL (0.0-0.2); #Eosinphils 0.3 thou/uL (0.0-0.7); #Lymphocytes 0.4 thou/uL (1.20-3.40); #Monocytes 0.7 thou/uL (0.11-0.59); %Basophils 0.9 % (0.0-1.0); %Eosinophils 5.5 % (0.0-10.0); %Lymphocytes 7.5 % (21.0-51.0); %Monocytes 12.1 % (0.0-10.0); Mean Corpuscular HGB CONC 32.2 g/dL (32.0-36.0); Mean Corpuscular Hemoglobin 34.4 pg (27.0-31.0); Mean Platelet Volume 8.8 fL (7.4-10.4); Platelet Count 68 thou/uL (130-400); RBC Distribution Width 14.4 % (11.5-14.5); Red Blood Cell (RBC) Count 2.61 mill/uL (4.70-6.10); White Blood Cell (WBC) Count 5.4 thou/uL (4.8-10.8)
[2019-09-11] MEDS ORDERED: Sodium Bicarbonate 2.5 MEQ/5 ML VIAL ONE (08:21)
[2019-09-11] MEDS ORDERED: Albumin 25% 200 ML ONE (08:21)
[2019-09-11] MEDS ORDERED: Lidocaine 1% PF 5 ML VIAL ONE (08:21)
[2019-09-11 08:32] LABS: INR-International Normal Ratio 1.4; PTT 32.5 SEC (22.9-36.1); Prothrombin Time 16.9 SEC (12.0-14.7)
--- NOTE | 2019-09-11 09:43 | ULT ---
Ultrasound-guided paracentesis: HISTORY: Cirrhosis and recurrent ascites FINDINGS: Informed consent obtained prior to the procedure. Preprocedural imaging demonstrated intrap eritoneal free fluid. An area was marked in the right mid abdomen in the mid axillary line, and then meticulously prepped a nd draped in normal sterile fashion and anesthetized with 1% buffered lidocaine. With direct sonographic guidance, a 19-gauge needle and 5 Belarusian Yueh catheter were advanced into the abdomen. After the return of fluid, the catheter was advanced, and the needle was removed. Approximately 5 L of dark straw-colored fluid was aspirated. The introducer sheath was removed, and h emostasis was achieved with direct pressure. A dry sterile dressing was placed. The patient tolerated the procedure well and without immediate complication. IMPRESSION: Technically successful ultrasound-guided paracentesis.
[2019-09-11 11:43] VITALS: BP 135/58; TEMP 97.4
== END 2019-09-11 09:40 | disposition home or self-care (01) ==
LOC: ULT 07:57
PROVIDERS: ATTEND Internal Medicine Gastroenterology
PROC: 0W9G3ZZ Drainage of Peritoneal Cavity, Percutaneous Approach (ICD-10-PCS; principal; 2019-09-11)
DX: K74.60 Unspecified cirrhosis of liver (principal); R18.8 Other ascites; E11.9 Type 2 diabetes mellitus without complications; I11.0 Hypertensive heart disease with heart failure; I50.9 Heart failure, unspecified; Z79.82 Long term (current) use of aspirin; Z79.899 Other long term (current) drug therapy; Z95.1 Presence of aortocoronary bypass graft; Z95.2 Presence of prosthetic heart valve
CPT/HCPCS: 49083; 85025; 85610; 85730; P9047; 36415; J2001

== ENCOUNTER 2019-09-25 08:16 | Day surgery (SDC) | payer MEDICARE, BC ==
[2019-09-24 08:38] VITALS: BMI 23.8
[2019-09-25] MEDS ORDERED: Albumin 25% 100 ML ONE (08:20)
[2019-09-25] MEDS ORDERED: Lidocaine 1% PF 5 ML VIAL ONE (08:20)
[2019-09-25] MEDS ORDERED: Sodium Bicarbonate 2.5 MEQ/5 ML VIAL ONE (08:20)
[2019-09-25 08:38] LABS: INR-International Normal Ratio 1.3
[2019-09-25 08:39] LABS: #Eosinphils 0.2 thou/uL (0.0-0.7); #Lymphocytes 0.2 thou/uL (1.20-3.40); #Monocytes 0.4 thou/uL (0.11-0.59); #Neutrophils 4.1 thou/uL (1.40-6.50); %Basophils 0.6 % (0.0-1.0); %Eosinophils 3.2 % (0.0-10.0); %Lymphocytes 4.8 % (21.0-51.0); %Monocytes 7.9 % (0.0-10.0); %Neutrophils 83.5 % (42.0-75.0); Hemoglobin 7.3 g/dL (14.0-18.0); Mean Corpuscular HGB CONC 32.7 g/dL (32.0-36.0); Mean Corpuscular Hemoglobin 35.2 pg (27.0-31.0); Mean Platelet Volume 8.9 fL (7.4-10.4); Platelet Count 99 thou/uL (130-400); RBC Distribution Width 15.2 % (11.5-14.5); Red Blood Cell (RBC) Count 2.07 mill/uL (4.70-6.10); White Blood Cell (WBC) Count 4.9 thou/uL (4.8-10.8)
[2019-09-25 08:45] LABS: ALT (SGPT) 8 U/L (8-55); AST (SGOT) 12 U/L (5-34); Alkaline Phosphatase 95 U/L (40-110); Anion Gap 12 mmol/L (10-20); BUN (Urea Nitrogen) 114 mg/dL (8.4-25.7); Bilirubin, Total 0.7 mg/dL (0.2-1.2); Calc. Creatinine Clearance 13 mL/min (70-130); Calcium 8.2 mg/dL (7.8-10.44); Carbon Dioxide 22 mmol/L (23-31); Chloride 102 mmol/L (98-107); Estimated GFR-MDRD 14; Globulin 2.7 g/dL (2.4-3.5); Glucose 282 mg/dL (83-110); Potassium 4.4 mmol/L (3.5-5.1); Protein, Total 5.7 g/dL (5.8-8.1); Sodium 132 mmol/L (136-145)
[2019-09-25] MEDS ORDERED: Sodium Chloride 0.9% 10 ML ONE (09:19)
[2019-09-25 10:04] VITALS: BP 111/49; TEMP 97.8
== END 2019-09-25 09:30 | disposition home or self-care (01) ==
LOC: ULT 08:16
PROVIDERS: ATTEND Internal Medicine Gastroenterology
DX: K74.60 Unspecified cirrhosis of liver (principal); R18.8 Other ascites; K72.90 Hepatic failure, unspecified without coma; I13.0 Hypertensive heart and chronic kidney disease with heart failure and stage 1 through stage 4 chronic kidney disease, or unspecified chronic kidney disease; E11.22 Type 2 diabetes mellitus with diabetic chronic kidney disease; N18.4 Chronic kidney disease, stage 4 (severe); I50.9 Heart failure, unspecified; I25.10 Atherosclerotic heart disease of native coronary artery without angina pectoris; E78.00 Pure hypercholesterolemia, unspecified; Z53.09 Procedure and treatment not carried out because of other contraindication; Z79.82 Long term (current) use of aspirin; Z79.899 Other long term (current) drug therapy
CPT/HCPCS: 36415; 80053; 85025; 85610; J2001; P9047

== ENCOUNTER 2019-09-25 09:31 | Inpatient (IN) | payer MEDICARE, BC ==
[2019-09-25 10:03] LABS: #Lymphocytes 0.1 thou/uL (1.20-3.40); #Monocytes 0.1 thou/uL (0.11-0.59); %Basophils 1.1 % (0.0-1.0); %Eosinophils 1.4 % (0.0-10.0); %Lymphocytes 4.3 % (21.0-51.0); %Monocytes 2.1 % (0.0-10.0); %Neutrophils 91.1 % (42.0-75.0); Hemoglobin 6.6 g/dL (14.0-18.0); Mean Corpuscular HGB CONC 33.2 g/dL (32.0-36.0); Mean Corpuscular Hemoglobin 35.3 pg (27.0-31.0); Mean Platelet Volume 8.9 fL (7.4-10.4); Platelet Count 86 thou/uL (130-400); RBC Distribution Width 14.8 % (11.5-14.5); Red Blood Cell (RBC) Count 1.87 mill/uL (4.70-6.10); White Blood Cell (WBC) Count 3.3 thou/uL (4.8-10.8)
[2019-09-25 10:09] LABS: INR-International Normal Ratio 1.4; Prothrombin Time 16.7 SEC (12.0-14.7)
[2019-09-25 10:14] LABS: ALT (SGPT) 12 U/L (8-55); AST (SGOT) 15 U/L (5-34); Albumin 3.2 g/dL (3.4-4.8); Alkaline Phosphatase 89 U/L (40-110); Anion Gap 14 mmol/L (10-20); BUN (Urea Nitrogen) 116 mg/dL (8.4-25.7); Bilirubin, Total 0.6 mg/dL (0.2-1.2); Calc. Creatinine Clearance 0 mL/min (70-130); Calcium 8.5 mg/dL (7.8-10.44); Carbon Dioxide 22 mmol/L (23-31); Chloride 103 mmol/L (98-107); Estimated GFR-MDRD 14; Globulin 2.5 g/dL (2.4-3.5); Glucose 237 mg/dL (83-110); Potassium 4.5 mmol/L (3.5-5.1); Protein, Total 5.7 g/dL (5.8-8.1); Sodium 134 mmol/L (136-145)
--- NOTE | 2019-09-25 10:23 | RAD ---
SINGLE VIEW CHEST: Date: 09/25/2019 COMPARISON: 03/18/2019. HISTORY: Hypotension. Liver cancer. Black tarry stools. FINDINGS: Single view of the chest shows normal sized cardiomediastinal silhouette. The patient is statues post sternotomy. There is no evidence of consolidation, mass, or pleural effusion. IMPRESSION: No evidence of acute cardiopulmonary disease. POS: [facility]
[2019-09-25 10:38] LABS: CKMB 1.7 ng/mL (0-6.6)
[2019-09-25] MEDS ORDERED: Pantoprazole 80 MG in Sodium Chloride 0.9% 100 ML IVPB SCH (11:15)
[2019-09-25] MEDS ORDERED: Acetaminophen 325 MG TAB PO PRN (14:26)
[2019-09-25] MEDS ORDERED: Ondansetron PF 4 MG/2 ML Vial IVP PRN ×2 (14:26→14:54)
[2019-09-25] MEDS ORDERED: Sodium Chloride 0.9% 1,000 ML IV SCH (14:26)
[2019-09-25] MEDS ORDERED: Ondansetron ODT 4 MG TAB SL PRN (14:26)
[2019-09-25 14:47] VITALS: BMI 22.4
[2019-09-25] MEDS ORDERED: Acetaminophen 500 MG TAB PO PRN (14:54)
[2019-09-25] MEDS ORDERED: Ondansetron ODT 4 MG TAB PO PRN (14:54)
[2019-09-25] MEDS ORDERED: hydrALAZINE 20 MG/ML VIAL SLOW IVP PRN (14:54)
[2019-09-25] MEDS ORDERED: HumaLOG 300 UNITS/3 ML VIAL SC PRN ×2 (15:40)
[2019-09-25] MEDS ORDERED: Dextrose 5% in Water 1,000 ML IV PRN (15:40)
[2019-09-25] MEDS ORDERED: Dextrose 50% Abboject 50 ML SYRINGE SLOW IVP PRN (15:40)
[2019-09-25] MEDS: Sodium Chloride 0.9% 1,000 ML IV SCH (17:17)
--- NOTE | 2019-09-25 17:30 | CON ---
DATE OF CONSULTATION: 09/25/2019 REQUESTING PHYSICIANS: Dr. Khan REASON FOR CONSULTATION: Anemia and cirrhosis. HISTORY OF PRESENT ILLNESS: Darryl Victoria is an 84-year-old gentleman, seen by my GI colleague, Dr. Glenn Murrell. He has a history significant for cryptogenic cirrhosis and chronic renal failure, which has been slowly progressive over the past several years. He has developed chronic ascites and gets a 5 L paracentesis about every 1 to 2 weeks. He has a baseline creatinine of about 2.5, baseline hemoglobin of about 9. His last EGD was in 2017 and showed grade 2 esophageal varices with no stigmata of bleeding as well as portal hypertensive gastropathy. He has not had a colonoscopy since 2006, this has been deferred due to his age and comorbidities. He does take iron 325 mg twice daily as well as a daily omeprazole 40 mg. He is on carvedilol as well for variceal prophylaxis. He went in for his paracentesis earlier today, but was found to be hypotensive with blood pressure of 70/50, a bit lightheaded at that time. He did not undergo paracentesis, but rather was admitted for further evaluation after report of having dark stools chronically. There was no bright red blood per rectum reported. Blood pressure here since admission has been good. He has remained hemodynamically stable. He has not had any diarrhea or bowel movements here. He does not complain of any abdominal pain. His hemoglobin was found to be 6.6, which is a significant decrease from his baseline. Creatinine is also up to 4.1. He was started on IV PPI. He has no other complaints. REVIEW OF SYSTEMS: Full review of systems including constitutional, head, eyes, ears, nose, throat, GI, , cardiovascular, respiratory, musculoskeletal, neurologic systems is negative except as noted in the HPI. PAST MEDICAL HISTORY: 1. Esophageal varices, grade 2, seen on EGD in 2017. 2. Portal hypertensive gastropathy. 3. Chronic renal failure, stage 4. 4. Cryptogenic cirrhosis. 5. Hepatic encephalopathy, mild. 6. Diabetes with nephropathy. 7. Chronic ascites, getting therapeutic paracentesis every 1 to 2 weeks. 8. Coronary artery disease. 9. Peripheral vascular disease. ALLERGIES: NO KNOWN DRUG ALLERGIES. OUTPATIENT MEDICATIONS: 1. Carvedilol. 2. Omeprazole 40 mg daily. 3. Ferrous sulfate 325 mg b.i.d. 4. Aspirin 81 mg daily. 5. Imdur. 6. Hydralazine. SOCIAL HISTORY: No smoking, alcohol, or drug use. FAMILY HISTORY: Noncontributory. PHYSICAL EXAMINATION: VITAL SIGNS: Temperature 97.7, pulse 74, blood pressure 137/62, 100% oxygen saturation on room air. GENERAL: An 84-year-old man, lying in bed comfortably, in no distress. SKIN: He is pale. No jaundice. No rashes that were palpable. EYES: No scleral icterus. Extraocular movements are intact. ENT: Mucous membranes are moist. No oral lesions. LYMPH: No submandibular or supraclavicular lymphadenopathy. NECK: Thyroid nontender to palpation. HEART: Regular rate and rhythm. Loud systolic murmur. LUNGS: Clear to auscultation bilaterally. ABDOMEN: Hvmi-ec-trymaojx distention with ascites, it is not tense. Bowel sounds present. Nontender to palpation throughout. EXTREMITIES: No peripheral edema. VESSELS: Radial pulses 2+ bilaterally. NEUROLOGICAL: Cranial nerves 2 through 12 intact bilaterally. No focal deficits. LABORATORY STUDIES: Hemoglobin 6.6, WBC 3.3, platelets 86, MCV is elevated to 106. INR 1.4. Sodium 134, potassium 4.5, BUN up to 116, creatinine 4.1, glucose 237. LFTs all normal with total bilirubin 0.6, alkaline phosphatase 89, AST 15, ALT 12, albumin 3.2. IMAGING STUDIES: Chest x-ray showed no acute processes. ASSESSMENT AND PLAN: 1. Melena, with report of chronically black stools. 2. Acute on chronic anemia, with significant decline in hemoglobin from 9 to 6.6 over the course of 2 weeks. 3. History of esophageal varices, grade 2, demonstrated on esophagogastroduodenoscopy in 2017, has been on carvedilol as variceal prophylaxis. 4. History of portal hypertensive gastropathy, demonstrated in 2017. 5. The patient presents with dark stools and significant interval decline in hemoglobin over the past couple of weeks. There is some concern for gastrointestinal hemorrhage. Certainly, I do not see any evidence of any brisk bleeding at this time given his stability, but further investigation is warranted. We are going to proceed with diagnostic esophagogastroduodenoscopy tomorrow. We would recommend antibiotics given his underlying history of cirrhosis and ascites. Continue with the proton pump inhibitor drip, but I do not think octreotide should be necessary unless clinical situation would change. 6. Cryptogenic cirrhosis. 7. Chronic ascites. The patient has been getting paracentesis of about 5 L every 1 to 2 weeks. Paracentesis was skipped today due to his presenting hypotension. He will likely need therapeutic paracentesis this admission, depending on results of esophagogastroduodenoscopy as well as the status of his kidney failure. 8. Acute on chronic kidney injury. The patient has had tenuous renal status for some time. Creatinine is elevated above baseline, BUN all the way up to 116 today. He is getting some IV fluids and albumin. Thank you for the consultation. Please call back anytime with questions or concerns. Job ID: [id number]
--- NOTE | 2019-09-25 17:40 | HP ---
PRIMARY CARE PROVIDER: Parker Tam MD. PRIMARY TRAFFIC DIVISION COMMANDING OFFICER: Glenn Murrell MD CHIEF COMPLAINT: Dizziness and anemia. HISTORY OF PRESENT ILLNESS: This is an 84-year-old male, who presents to [facility] Emergency Department complaining of 4 to 5 day history of increasing dizziness, generalized weakness, and lethargy. The patient denied any recent fall, injury, travel history, or exposure. The patient does admit to a significant history of idiopathic hepatic cirrhosis, receiving serial paracentesis for therapeutic volume removal. The patient states he has had approximate 2-week history of not having the procedure due to hypotension and dizziness. The patient denied any specific change to his chronic medication regimen, but had noticed some nausea without emesis. The patient also admitted to several dark-colored stools, but states his appetite is depressed and he sometimes has difficulty with constipation. The patient does admit to taking daily aspirin, but no other anticoagulation. The patient states his last endoscopy was approximately 3 years ago and noted with nonbleeding varices. The patient has been followed by the Gastroenterology Service for his idiopathic hepatic cirrhosis. In the emergency room, the patient underwent general evaluation with hemoglobin noted at 6.6, previously 9.0 on 09/11/2019. The patient was typed and crossed for 2 units of packed red blood cells and received 1 unit. The patient also initiated on intravenous normal saline as well as Protonix infusion. PAST MEDICAL HISTORY: 1. Chronic kidney disease. 2. 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 3. Idiopathic hepatic cirrhosis. 4. Coronary artery disease. 5. Diabetes mellitus, type 2, diet managed. 6. Hypertension. 7. Hyperlipidemia. PAST SURGICAL HISTORY: 1. Status post appendectomy. 2. Status post hydrocele repair. 3. Status post cataract removal. 4. Status post coronary artery bypass grafting. 5. Status post carotid endarterectomy. 6. Status post hernia repair. 7. Status post cardiac catheterization with PCI. 8. Status post EGD in 10/2016 with grade 2 nonbleeding varices. 9. Status post colonoscopy in 2005, normal. CURRENT MEDICATIONS: 1. Enteric-coated aspirin 81 mg p.o. daily. 2. Ferrous sulfate 325 mg p.o. daily. 3. Hydralazine 100 mg p.o. b.i.d. 4. Omeprazole 40 mg p.o. daily. 5. Flomax 0.4 mg p.o. daily. 6. Coreg 3.125 mg p.o. b.i.d. 7. Isosorbide mononitrate 120 mg p.o. daily. ALLERGIES: NO KNOWN DRUG ALLERGIES. FAMILY HISTORY: No inheritable diseases per the patient's report. SOCIAL HISTORY: . No alcohol, tobacco, or illicit drug use. Retired. Ambulates with a rolling walker or cane. REVIEW OF SYSTEMS: CONSTITUTIONAL: Negative for weight loss or gain, ability to conduct usual activities. SKIN: Negative for rash, itching. EYES: Negative for double vision, pain. ENT/MOUTH: Negative for nose bleeding, neck stiffness, pain, tenderness. CARDIOVASCULAR: Negative for palpitations, dyspnea on exertion, orthopnea. RESPIRATORY: Negative for shortness of breath, wheezing, cough, hemoptysis, fever or night sweats. GASTROINTESTINAL: Negative for poor appetite, abdominal pain, heartburn, nausea, vomiting, constipation, or diarrhea. GENITOURINARY: Negative for urgency, frequency, dysuria, nocturia. MUSCULOSKELETAL: Negative for pain, swelling. NEUROLOGIC/PSYCHIATRIC: Negative for anxiety, depression. ALLERGY/IMMUNOLOGIC: Negative for skin rash, bleeding tendency. Otherwise, negative except as stated per HPI. PHYSICAL EXAMINATION: VITAL SIGNS: On admission, blood pressure 124/57, pulse 75, respiratory rate 16, temperature 98 degrees Fahrenheit, and O2 saturation 100% on room air. GENERAL APPEARANCE: This is an 84-year-old male, alert and oriented x3, pleasant, responsive, in no acute distress. HEENT: Pupils are equal, round, reactive to light and accommodation. Extraocular muscles are intact. No scleral icterus. No conjunctival injection. Nares patent. OP is clear. Oral mucosa dry. NECK: Supple. No cervical adenopathy. No thyromegaly. No carotid bruits. No JVD appreciated. Cervical spine with full active and passive range of motion. No meningeal signs noted. CHEST: Lungs are clear to auscultation bilaterally. CARDIOVASCULAR: S1 and S2 with holosystolic murmur, loudest at the apex. ABDOMEN: Rounded and distended with minimal tenderness to palpation. Fluid wave noted. No palpable mass. No rebound or guarding noted. EXTREMITIES: Warm and dry with fair turgor. No clubbing, cyanosis, or asymmetric edema appreciated. Pulses palpable distally at the dorsalis pedis, posterior tibial, and popliteal arteries bilaterally. Capillary refill less than 2 seconds. NEUROLOGIC: Cranial nerves 2 through 12 are grossly intact. No focal or lateralizing signs appreciated. The patient not observed ambulatory during this exam. PERTINENT LABORATORY AND X-RAY FINDINGS: Sodium 134, potassium 4.5, chloride 103, CO2 of 22, BUN 116, creatinine 4.10, glucose 237, and calcium 8.5. Iron 93 and ferritin 43.16. AST 15, ALT 12, alkaline phosphatase 89. Troponin I 0.136. Albumin 3.2. CBC showed a white blood cell count of 3.3, hemoglobin 6.6, hematocrit 20, MCV 106, and platelet count 86 with 91% neutrophils. PT 16.7, INR 1.4, and PTT 30.0. Serum iron level 93 and ferritin 43.16. Portable chest x-ray dated 09/25/2019 showed no evidence of acute cardiopulmonary process. EKG dated 09/25/2019 by my interpretation shows sinus mechanism with heart rates in the 70s. Attenuated R-waves noted in the precordial leads. Left axis deviation. No acute ST-T wave changes appreciated. ASSESSMENT AND PLAN: 1. Symptomatic anemia. The patient will be admitted to the intermediate care unit. Suspect multifactorial process with potential component of gastrointestinal blood loss. Type and cross with 2 units of packed red blood cells when available. Continue Protonix 8 mg/hour. Add Rocephin. Continue intravenous normal saline at 75 mL/h. Consult GI Service for potential esophagogastroduodenoscopy evaluation and colonoscopy. Serial H and H monitoring. 2. Acute on chronic kidney disease. Suspect hepatorenal syndrome given long-standing hepatic cirrhosis. Continue low volume intravenous normal saline and avoid nephrotoxic agents and limit contrast exposure. Repeat creatinine in the a.m. 3. Idiopathic hepatic cirrhosis. Continue supportive management as outlined previously. Consult GI Service for any further recommendations. Consider timing of next paracentesis. 4. Diabetes mellitus, type 2. Diet managed as an outpatient. Insulin sliding scale for reflexive coverage. Serial Accu-Cheks before meals and at bedtime. 5. Prophylaxis. SCDs while in bed. Protonix infusion. PT evaluation in the a.m. 6. Code status is full. Surrogate medical decision maker is the patient's spouse. Job ID: [id number]
[2019-09-25] MEDS: cefTRIAXone\\ROCEPHIN 1 GM in Sodium Chloride 0.9% 100 ML IVPB SCH (17:56)
[2019-09-25] MEDS: Carvedilol 3.125 MG TAB PO SCH (21:00)
[2019-09-25] MEDS ORDERED: hydrALAZINE 25 MG TAB PO SCH (21:00)
[2019-09-25] MEDS: Pantoprazole 80 MG in Sodium Chloride 0.9% 100 ML IVPB SCH (21:50)
[2019-09-26] MEDS: Sodium Chloride 0.9% 1,000 ML IV SCH (03:20)
[2019-09-26 05:41] LABS: ALT (SGPT) 12 U/L (8-55); AST (SGOT) 13 U/L (5-34); Albumin 2.8 g/dL (3.4-4.8); Alkaline Phosphatase 76 U/L (40-110); Anion Gap 12 mmol/L (10-20); BUN (Urea Nitrogen) 106 mg/dL (8.4-25.7); Bilirubin, Total 1.7 mg/dL (0.2-1.2); Calc. Creatinine Clearance 14 mL/min (70-130); Calcium 8.3 mg/dL (7.8-10.44); Carbon Dioxide 22 mmol/L (23-31); Chloride 105 mmol/L (98-107); Estimated GFR-MDRD 16; Globulin 2.3 g/dL (2.4-3.5); Glucose 103 mg/dL (83-110); Potassium 4.1 mmol/L (3.5-5.1); Protein, Total 5.1 g/dL (5.8-8.1); Sodium 135 mmol/L (136-145)
[2019-09-26 05:47] LABS: Hemoglobin 7.9 g/dL (14.0-18.0); Mean Corpuscular HGB CONC 34.3 g/dL (32.0-36.0); Mean Corpuscular Hemoglobin 34.8 pg (27.0-31.0); Mean Platelet Volume 9.1 fL (7.4-10.4); Platelet Count 61 thou/uL (130-400); Red Blood Cell (RBC) Count 2.26 mill/uL (4.70-6.10); White Blood Cell (WBC) Count 3.7 thou/uL (4.8-10.8)
[2019-09-26 05:48] LABS: Band 5 % (5-11); Eosinophils 7 % (0-10); Lymphocytes 6 % (21-51); MDiff Complete? YES; Monocytes 4 % (0-10); Neutrophil 78 % (42-75); Platelet Morphology Comment Appears Decreased
[2019-09-26] MEDS: Tamsulosin HCl 0.4 MG CAP PO SCH (09:30)
[2019-09-26] MEDS: Ferrous Sulfate 325 MG TAB PO SCH (09:31)
[2019-09-26] MEDS: Carvedilol 3.125 MG TAB PO SCH ×2 (09:31→20:48)
[2019-09-26] MEDS: Pantoprazole 80 MG in Sodium Chloride 0.9% 100 ML IVPB SCH (09:33)
[2019-09-26] MEDS ORDERED: PROPOFOL 200 MG/20 ML VIAL ONE (11:50)
[2019-09-26] MEDS ORDERED: PHENYLEPHRINE-NS 100 MCG/ML 10 ML SYRINGE ONE (11:50)
[2019-09-26] MEDS ORDERED: Lidocaine 1% PF 5 ML VIAL ONE (11:50)
--- NOTE | 2019-09-26 13:07 | EKG ---
Test Reason : Blood Pressure : / mmHG Vent. Rate : 069 BPM Atrial Rate : 069 BPM P-R Int : 182 ms QRS Dur : 082 ms QT Int : 466 ms P-R-T Axes : 077 -07 062 degrees QTc Int : 499 ms Sinus rhythm with occasional Premature ventricular complexes Low voltage QRS Cannot rule out Anteroseptal infarct , age undetermined Abnormal ECG Confirmed by JAIMIE SANCHEZ DO ([id number]), purchasing expeditor HAYES GALARAZ ([id number]) on 09/26/2019 1:06:33 PM Referred By: Confirmed By:JAIMIE SANCHEZ DO
[2019-09-26] MEDS ORDERED: Ondansetron HCl/PF 4 MG/2 ML Vial IVP PRN (14:22)
--- NOTE | 2019-09-26 14:50 | OP ---
DATE OF PROCEDURE: 09/26/2019 CLINICAL DOCUMENTATION CLERK SURGEON: None. PROCEDURE PERFORMED: Esophagogastroduodenoscopy with control of hemorrhage. INDICATIONS: 1. Chronic melena. 2. Cndlv-ha-mqungsn anemia. 3. Known history of esophageal varices, on nonselective beta chente. MEDICATIONS: See Anesthesia record. FINDINGS: After discussion of the risks, benefits, and alternatives of the procedure, informed consent was obtained and witnessed. Pre-endoscopic cardiopulmonary examination was satisfactory. Time-out was performed before sedation was achieved. Sedation was achieved with Anesthesia assistance in the endoscopy unit. A Pentax adult upper endoscope was placed into the oropharynx and passed through the cricopharyngeus under direct visualization. The proximal esophageal mucosa appeared normal. In the distal esophagus, there were 3 trunks of grade 2 esophageal varices. There were no red spots, no nipple sign, no high-risk stigmata to signify recent bleeding or high-risk of bleeding. I did not perform any intervention on the varices. The endoscope was advanced into the stomach. Forward and retroflexed views of the entire gastric mucosa were obtained. There was no evidence of any gastric varices. There was some mild diffuse edema within the gastric fundus and body consistent with portal hypertensive gastropathy. In the gastric body on the greater curvature, there was a fairly focal area of more significant gastropathy with submucosal hemorrhage, also a single area of active slow oozing from this area. I did not see any typical arborization characteristic of AVM, rather it appeared that this oozing was coming from an underlying area of gastropathy or perhaps a Dieulafoy lesion. As the oozing continued for several minutes of examination, I elected to treat it with argon-plasma coagulation. I successfully treated this area with argon-plasma coagulation at 25 garvey in 0.8 L/minute. This was successful and hemostasis was achieved. The endoscope was passed through the pylorus and into the first and second portions of the duodenum, which appeared normal. The upper endoscope was completely withdrawn and the patient was allowed to recover. The patient tolerated the procedure well. There were no immediate postprocedure complications. IMPRESSION: 1. Active slow oozing of blood from a focal area of portal gastropathy in the gastric body. Treated with argon-plasma coagulation, with successful hemostasis achieved. 2. Three trunks of grade 2 esophageal varices in the distal esophagus. No high-risk stigmata of bleeding, no intervention performed on the varices. RECOMMENDATIONS: 1. Continue with carvedilol. 2. Continue PPI. Would dose it at twice daily for the next month, then back off to once daily dosing thereafter. 3. The patient will need therapeutic paracentesis, ultrasound guided, either later today or tomorrow. Please call anytime with questions or concerns. Job ID: [id number]
[2019-09-26] MEDS: cefTRIAXone\\ROCEPHIN 1 GM in Sodium Chloride 0.9% 100 ML IVPB SCH (16:55)
--- NOTE | 2019-09-26 17:33 | PDOC.HOSPP ---
- Subjective Encounter Date: 09/26/19 Encounter Time: 17:30 Subjective: f/u for GI bleed, symptomatic anemia s/p 2u PRBC's. EGD showed gastropathy with active bleeding and tx with APC with successful hemostasis. Feels ok overall. - Objective Vital Signs & Weight: Vital Signs (12 hours) Temp Pulse Ox 09/26/19 15:25 97.6 F 09/26/19 08:00 98 09/26/19 07:15 99.3 F Weight Admit Weight 143 lb Weight 143 lb 4.8 oz Most Recent Monitor Data Heart Rate from ECG 70 NIBP 136/66 NIBP BP-Mean 89 Respiration from ECG 14 SpO2 100 I&O: 09/25/19 09/26/19 09/27/19 06:59 06:59 06:59 Intake Total 1380 Output Total 425 Balance 955 Result Diagrams: 09/26/19 03:42 09/26/19 03:42 Additional Labs: Accuchecks 09/26/19 09/25/19 06:08 20:02 POC Glucose 122 H 249 H Laboratory Tests 08/07/19 09/03/19 09/25/19 08:00 08:10 08:16 WBC Hgb MCV Plt Count BUN 69 H 114 H Creatinine 2.83 H 2.60 H 4.02 H 09/25/19 09/25/19 09:41 09:41 WBC 3.3 L Hgb 6.6 L MCV 106.0 H Plt Count 86 L BUN 116 H Creatinine 4.10 H EKG Reviewed by me: Yes (Tele - SR) Hospitalist ROS - Medication Medications: Active Medications Generic Name Dose Route Start Last Admin Trade Name Druq PRN Reason Stop Dose Admin Carvedilol 3.125 mg 09/25/19 21:00 09/26/19 09:31 Coreg PO 3.125 mg BID CHAPO Administration Ferrous Sulfate 325 mg 09/26/19 09:00 09/26/19 09:31 Feosol PO 325 mg DAILY CHAPO Administration Ceftriaxone Sodium 1 gm/ 100 mls @ 200 mls/hr 09/25/19 16:00 09/26/19 16:55 Sodium Chloride IVPB 100 mls Q24HR CHAPO Administration Sodium Chloride 1,000 mls @ 75 mls/hr 09/25/19 15:30 09/26/19 03:20 Normal Saline 0.9% IV 1,000 mls .[id number] CHAPO Administration Insulin Human Lispro 0 units 09/25/19 15:40 09/25/19 21:20 Humalog SC 2 unit .BEDTIME SLIDING SC PRN Administration Bedtime Correctional Scale Tamsulosin HCl 0.4 mg 09/26/19 09:00 09/26/19 09:30 Flomax PO 0.4 mg DAILY CHAPO Administration - Exam General Appearance: NAD, awake alert Eye: PERRL, anicteric sclera ENT: normocephalic atraumatic, no oropharyngeal lesions Neck: supple, symmetric, no JVD, no thyromegaly Respiratory: CTAB, no wheezes, no rales, no ronchi, normal chest expansion Gastrointestinal: soft, non-tender, normal bowel sounds, no palpable masses Gastrointestinal - other findings: distended with fluid wave Extremities: no cyanosis, no clubbing Skin: normal turgor, no lesions Neurological: cranial nerve grossly intact, no new deficit Musculoskeletal: normal tone, generalized weakness Psychiatric: A&O x 3 Hosp A/P (1) Upper GI bleed Code(s): K92.2 - GASTROINTESTINAL HEMORRHAGE, UNSPECIFIED Status: Acute Plan: Secondary to portal gastropathy s/p APC, PPI (2) Symptomatic anemia Code(s): D64.9 - ANEMIA, UNSPECIFIED Status: Acute Plan: s/p 2u PRBC's, see #1 above, serial H/H (3) Acute on chronic blood loss anemia Code(s): D62 - ACUTE POSTHEMORRHAGIC ANEMIA Status: Acute Plan: See above (4) Acute kidney injury superimposed on CKD Code(s): N17.9 - ACUTE KIDNEY FAILURE, UNSPECIFIED; N18.9 - CHRONIC KIDNEY DISEASE, UNSPECIFIED Status: Acute Plan: Improved, continue low-volume IVF's, avoid nephrotoxic meds and limit contrast exposure (5) Hepatorenal syndrome Code(s): K76.7 - HEPATORENAL SYNDROME Status: Chronic (6) Cirrhosis Code(s): K74.60 - UNSPECIFIED CIRRHOSIS OF LIVER Status: Chronic Qualifiers: Hepatic cirrhosis type: unspecified hepatic cirrhosis Ascites presence: with ascites Qualified Code(s): K74.60 - Unspecified cirrhosis of liver; R18.8 - Other ascites Plan: Likely therapeutic paracentesis 09/26 with plans to return home the same day - Plan continue antibiotics, manager social services, DVT proph w/SCDs Consults: Palliative Care Stable currently Continue Protonix 40mg IV BID Avoid NSAID's/anticoagulation Paracentesis likely in am AM labs: BMP, CBC Likely home with hospice in 24h
[2019-09-26] MEDS: Pantoprazole 40 MG VIAL IVP SCH (20:50)
[2019-09-27] MEDS: Sodium Chloride 0.9% 1,000 ML IV SCH (04:31)
[2019-09-27 04:40] LABS: Anion Gap 12 mmol/L (10-20); BUN (Urea Nitrogen) 95 mg/dL (8.4-25.7); Calc. Creatinine Clearance 16 mL/min (70-130); Calcium 8.2 mg/dL (7.8-10.44); Carbon Dioxide 20 mmol/L (23-31); Chloride 110 mmol/L (98-107); Estimated GFR-MDRD 18; Glucose 91 mg/dL (83-110); Potassium 4.2 mmol/L (3.5-5.1); Sodium 138 mmol/L (136-145)
[2019-09-27 04:54] LABS: Eosinophils 2 % (0-10); Lymphocytes 4 % (21-51); MDiff Complete? YES; Macrocytosis SLIGHT = 6-15 cells (100X) (0-5/hpf); Mean Corpuscular HGB CONC 33.8 g/dL (32.0-36.0); Mean Corpuscular Hemoglobin 34.7 pg (27.0-31.0); Mean Platelet Volume 9.2 fL (7.4-10.4); Monocytes 11 % (0-10); Neutrophil 83 % (42-75); Platelet Count 61 thou/uL (130-400); Platelet Morphology Comment Appears Decreased; Red Blood Cell (RBC) Count 2.29 mill/uL (4.70-6.10); White Blood Cell (WBC) Count 3.6 thou/uL (4.8-10.8)
[2019-09-27] MEDS: Carvedilol 3.125 MG TAB PO SCH (07:57)
[2019-09-27] MEDS: Tamsulosin HCl 0.4 MG CAP PO SCH (07:58)
[2019-09-27] MEDS: Ferrous Sulfate 325 MG TAB PO SCH (07:58)
[2019-09-27] MEDS: Pantoprazole 40 MG VIAL IVP SCH (07:58)
[2019-09-27 10:06] VITALS: BP 160/70
--- NOTE | 2019-09-27 10:09 | ULT ---
Ultrasound-guided paracentesis: 09/27/2019 HISTORY: Symptomatic ascites FINDINGS: Informed consent obtained prior to the procedure. Preprocedural imaging demonstrated signif icant ascites throughout the abdomen and pelvis. Right lower quadrant prepped and draped in normal sterile fashion and anesthetized with 1% buffered l idocaine. With direct sonographic guidance, 5 [place] Yueh catheter is advanced into the ascites and removal of the stylet yielded yellow fluid. 5.1 L were removed. The patient tolerated the procedure well. No postprocedural complications. IMPRESSION: Successful ultrasound-guided paracentesis yielding 5.1 L of yellow fluid.
[2019-09-27 15:36] VITALS: TEMP 98.4
[2019-09-27] MEDS: cefTRIAXone\\ROCEPHIN 1 GM in Sodium Chloride 0.9% 100 ML IVPB SCH (16:29)
--- NOTE | 2019-09-27 19:52 | DIS ---
DATE OF ADMISSION: 09/25/2019 DATE OF DISCHARGE: 09/27/2019 DISCHARGE DIAGNOSES: 1. Upper gastrointestinal bleed secondarily to portal gastropathy, status post argon plasma coagulation. 2. Acute on chronic blood loss anemia, status post 2 units of packed red blood cells. 3. Symptomatic anemia, improved. 4. Hepatic cirrhosis with recurrent ascites, status post 5 L removed on 09/27/2019. 5. Hepatorenal syndrome. 6. Acute on chronic kidney disease. CONSULTATIONS: Dr. Mora with GI Service. PERTINENT LABORATORY AND X-RAY FINDINGS: Creatinine ranged between 3.22 to 4.10. Estimated GFR ranged between 14 to 18. Serum iron level 93 and ferritin 43.16. Albumin 2.8. CBC showed a white blood cell count ranging between 3.3 to 3.7 and hemoglobin ranging between 6.6 to 8.0. Stool Hemoccult dated 09/25/2019 positive x1. Portable chest x-ray dated on 09/25/2019 showed no acute cardiopulmonary process. EGD dated 09/26/2019 showed active blood loss from focal area of portal gastropathy and the gastric body, treated with argon plasma coagulation with hemostasis. Esophageal varices noted. HOSPITAL COURSE: The patient was admitted after presenting with dizziness and symptomatic anemia in the context of advanced hepatic cirrhosis with recurrent ascites. The patient was noted with initial hemoglobin of 6.6 and was typed and crossed and received 2 units of packed red blood cells. The patient was placed on Protonix infusion and underwent GI evaluation including EGD showing evidence of active bleed from a focal area of portal gastropathy. The patient underwent coagulation procedure with hemostasis and was monitored with serial hemoglobins showing overall stable trend. The patient received therapeutic paracentesis on 09/27/2019 with 5.1 L removed. Overall, the patient tolerated the procedure and remained clinically stable postoperatively. The patient currently ready to return home with [facility] on 09/27/2019. I have examined the patient at the time of discharge and discussed followup instructions. The patient verbalized understanding and agreement and ready for discharge. DISCHARGE MEDICATIONS: 1. Ferrous sulfate 325 mg p.o. daily. 2. Hydralazine 100 mg p.o. b.i.d. 3. Flomax 0.4 mg p.o. daily. 4. Coreg 3.125 mg p.o. b.i.d. 5. Imdur 120 mg p.o. daily. 6. Protonix 40 mg p.o. b.i.d. FOLLOWUP: The patient is to follow up with his primary care provider, Dr. Parker Tam. The patient will also follow up with [facility] care at home. CONDITION ON DISCHARGE: Guarded. ACTIVITY: Ad-davian. DIET: Heart healthy. CODE STATUS: Do not attempt resuscitation. DISPOSITION: Home with [facility] on 09/27/2019. TIME SPENT: Total time preparing and coordinating discharge is 33 minutes. Job ID: [id number]
--- NOTE | 2019-09-28 05:35 | PRG ---
DATE OF SERVICE: 09/27/2019 SUBJECTIVE: This is an 84-year-old male with liver cirrhosis, ascites. Also has . He underwent EGD by Dr. Juan Mora yesterday. He was found to have bleeding from the gastric body, possibly vascular ectasia. Underwent APC therapy of the lesion . The patient has had a large volume paracentesis today. He had drainage of 5.1 L of fluid. The fluid appears clear. a whole lot better. He is trying to eat . PHYSICAL EXAMINATION: GENERAL: He is thin built, appears comfortable. VITAL SIGNS: Afebrile, pulse is 71, blood pressure . CARDIOVASCULAR: First and second heart sounds heard. LUNGS: Clear to auscultation. ABDOMEN: Softer and distended. Abdomen is nontender. LABORATORY DATA: From today CBC; WBC 3600, hemoglobin 8, hematocrit 23.5 . 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 RECOMMENDATIONS: From GI standpoint, he can diet . Job ID: [id number]
== END 2019-09-27 18:00 | disposition hospice, home (50) | DRG 441 ==
LOC: ERS 09:31 → IMCU/EMU 11:02
PROVIDERS: ADMIT Family Medicine; ATTEND Family Medicine
PROC: 0W3P8ZZ Control Bleeding in Gastrointestinal Tract, Via Natural or Artificial Opening Endoscopic (ICD-10-PCS; principal; 2019-09-26)
PROC: 30233N1 Transfusion of Nonautologous Red Blood Cells into Peripheral Vein, Percutaneous Approach (ICD-10-PCS; 2019-09-26)
PROC: 0W9G3ZZ Drainage of Peritoneal Cavity, Percutaneous Approach (ICD-10-PCS; 2019-09-27)
DX: K76.6 Portal hypertension (principal); K76.7 Hepatorenal syndrome; N18.4 Chronic kidney disease, stage 4 (severe); I85.10 Secondary esophageal varices without bleeding; Z51.5 Encounter for palliative care; N17.9 Acute kidney failure, unspecified; D62 Acute posthemorrhagic anemia; K92.2 Gastrointestinal hemorrhage, unspecified; R18.8 Other ascites; D64.9 Anemia, unspecified; E11.22 Type 2 diabetes mellitus with diabetic chronic kidney disease; K74.69 Other cirrhosis of liver; I25.10 Atherosclerotic heart disease of native coronary artery without angina pectoris; I12.9 Hypertensive chronic kidney disease with stage 1 through stage 4 chronic kidney disease, or unspecified chronic kidney disease; E78.5 Hyperlipidemia, unspecified; K31.89 Other diseases of stomach and duodenum; Z95.1 Presence of aortocoronary bypass graft; Z79.899 Other long term (current) drug therapy; Z90.49 Acquired absence of other specified parts of digestive tract; Z79.82 Long term (current) use of aspirin
CPT/HCPCS: 36415; 36416; 36430; 49083; 71045; 80048; 80053; 82274; 82553; 82728; 83540; 84484; 85007; 85025; 85027; 85610; 85730; 86850; 86900; 86901; 93005; C9113; J0696; J2001; J2704; J3490; P9016; P9047

== ENCOUNTER 2019-10-02 06:13 | Day surgery (SDC) | payer MEDICARE, BC ==
[2019-10-01 14:51] VITALS: BMI 21.1
[2019-10-02] MEDS ORDERED: Bupivacaine PF 0.5% 30 ML VIAL ONE (06:42)
[2019-10-02] MEDS ORDERED: Lidocaine 1% w/Epinephrine 1:100K 20 ML VIAL ONE (06:42)
[2019-10-02] MEDS ORDERED: Fentanyl 100 MCG/2 ML VIAL ONE (07:08)
--- NOTE | 2019-10-02 09:24 | OP ---
DATE OF PROCEDURE: 10/02/2019 PREOPERATIVE DIAGNOSIS: Cryptogenic cirrhosis with ascites, drained 4 to 7 L weekly, on [facility]. POSTOPERATIVE DIAGNOSIS: Cryptogenic cirrhosis with ascites, drained 4 to 7 L weekly, on [facility]. PROCEDURE PERFORMED: Laparoscopic evacuation of ascites, 8.8 L. Laparoscopic placement of PleurX peritoneal catheter. Laparoscopic omentopexy. ANESTHESIA: General, local 0.5% Marcaine 30 mL mixed with 1% Xylocaine with epinephrine 20 mL. DESCRIPTION OF PROCEDURE: The patient was taken to the operating room where under general anesthesia, abdomen was prepared with ChloraPrep and draped in routine fashion. Bilateral subcostal far lateral incision made. Pneumoperitoneum to 15 mmHg obtained with a Veress needle, replaced with a 5 port, laparoscope inserted. Contralateral 5 port placed under laparoscopic visualization. An 8.8 L of ascites fluid evacuated. Liver being noted to be cirrhotic and video photographs made. Abdominal cavity otherwise unremarkable. Incision was made at the planned exit site, right lower quadrant, and a counterincision was made periumbilical and using the [place] dissector placed through the counterincision toward the exit site, the catheter was grasped and the fabric cuff placed beneath the skin exit site and then the introducer sheath and dilator placed through the counterincision, directed caudally toward the pelvis, visualized laparoscopically as it traveled the abdominal wall, rectus sheath into the abdominal cavity dependently distally. The catheter was then placed through the Peel-Away sheath. Peel-away sheath removed. Catheter placed in proper position in the pelvis. Subcutaneous tissue was approximated with 4-0 Monocryl, skin with subdermal 4-0 Monocryl. Exit site tied with 4-0 Monocryl suture. Dermabond and sterile dressings applied. The omentum was noted to be partially attached to the upper sigmoid mesentery and omentopexy, performed with a transabdominal wall fixation suture of 0 Vicryl using a [place] needle, fixing it to the anterior abdominal wall to prevent dependency and prevent it wrapping around the catheter. Abdominal cavity had been decompressed of ascites. Pneumoperitoneum reduced. All instruments were removed. All skin incisions were approximated with a subdermal 4-0 Monocryl, and [place] glue applied. The patient tolerated the procedure well. Job ID: [id number]
[2019-10-02] MEDS ORDERED: Lidocaine 1% PF 5 ML VIAL ONE (09:27)
[2019-10-02] MEDS ORDERED: EPHEDRINE 25 MG/5 ML SYRINGE ONE (09:27)
[2019-10-02] MEDS ORDERED: diphenhydrAMINE 50 MG/ML VIAL ONE (09:27)
[2019-10-02] MEDS ORDERED: Ondansetron PF 4 MG/2 ML Vial ONE (09:27)
[2019-10-02] MEDS ORDERED: Dexamethasone 20 MG/5 ML VIAL ONE (09:27)
[2019-10-02] MEDS ORDERED: Rocuronium Bromide 10 MG/ML (10ML VIAL) ONE (09:27)
[2019-10-02] MEDS ORDERED: Glycopyrrolate 0.2 MG/ML 5 ML SYRINGE ONE (09:27)
[2019-10-02] MEDS ORDERED: Succinylcholine Chloride 20 MG/ML 10 ml SYRINGE FS ONE (09:27)
--- NOTE | 2019-10-02 09:35 | HP ---
HISTORY OF PRESENT ILLNESS: Darryl Victoria is an 84-year-old male, [facility] patient for cryptogenic stenosis and intractable ascites. He has been seen by Dr. Murrell, Gastroenterology in [facility] with transjugular biopsy of the liver, workup revealing cryptogenic cirrhosis. He does not have a prior history of alcohol use or hepatitis. He is sent to Radiology once a week for 4 to 7 L paracentesis. I have been asked by the Hospice to place a peritoneal catheter to drain him at home. Plan is laparoscopic placement of PleurX catheter, a cuffed tunneled catheter. ALLERGIES: NONE. SOCIAL HISTORY: Tobacco none for 50 years. Alcohol, none. MEDICATIONS: 1. Carvedilol. 2. Protonix. 3. Iron. 4. Aspirin. 5. Hydralazine. 6. Isosorbide mononitrate. 7. Flomax. PAST SURGICAL HISTORY: Inguinal hernia repair, appendectomy, carotid endarterectomy, Dr. Poon. Cardiac catheterization in 2013, triple bypass, aortic valve replacement in July 2013, Dr. Poon. 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 Paracentesis every week, 4 to 7 L. Transjugular liver biopsy, [address] [facility]. Recent upper endoscopy with cauterization of gastric bleeding, Dr. Murrell. Hydrocelectomy, 01/06/2016. MRI and cardiac catheterization, 01/19/2016 and 01/20/2016 at [facility]. No evidence of pericarditis. Upper endoscopy, EGD in 2016. Stress test in October 2018, Dr. Michelle, negative. PAST MEDICAL HISTORY: Cryptogenic cirrhosis, hypertension, BPH, refractory ascites. FAMILY HISTORY: None. REVIEW OF SYSTEMS: Otherwise, noncontributory. No cardiac symptomatology. PHYSICAL EXAMINATION: VITAL SIGNS: Blood pressure 140/70, respiratory rate 16, heart rate 76. HEAD, EARS, EYES, NOSE AND THROAT: Unremarkable. Sclerae nonicteric. SKIN: Nonjaundiced. LUNGS: Clear to auscultation. CARDIAC: Regular rate and rhythm without murmur or gallop. ABDOMEN: Soft, distended. Positive fluid wave. EXTREMITIES: No significant edema. LABORATORY DATA: See chart. ASSESSMENT: Cryptogenic cirrhosis, on [facility]. PLAN: Laparoscopic peritoneal PleurX catheter placement. Risks and benefits explained. He consents. Job ID: [id number]
[2019-10-02] MEDS ORDERED: HYDROcodone/Acetaminophen 5/325 mg Tablet ONE (13:19)
--- NOTE | 2019-10-02 16:12 | EKG ---
Test Reason : PREOP Blood Pressure : / mmHG Vent. Rate : 063 BPM Atrial Rate : 063 BPM P-R Int : 180 ms QRS Dur : 086 ms QT Int : 508 ms P-R-T Axes : 075 -16 052 degrees QTc Int : 519 ms Normal sinus rhythm Low voltage QRS Septal infarct , age undetermined cannot be excluded Prolonged QT Abnormal ECG Confirmed by HAILY MARINO ([id number]) on 10/02/2019 4:12:34 PM Referred By: EDU Confirmed By:HAILY MARINO
== END 2019-10-02 14:15 | disposition home or self-care (01) ==
LOC: SDC 06:13
PROVIDERS: ATTEND Specialist
PROC: 0WHG43Z Insertion of Infusion Device into Peritoneal Cavity, Percutaneous Endoscopic Approach (ICD-10-PCS; principal; 2019-10-02)
DX: K74.69 Other cirrhosis of liver (principal); R18.8 Other ascites; I10 Essential (primary) hypertension; N40.0 Benign prostatic hyperplasia without lower urinary tract symptoms; Z79.82 Long term (current) use of aspirin; Z79.899 Other long term (current) drug therapy; Z87.891 Personal history of nicotine dependence
CPT/HCPCS: 49324; 49326; 51798; 86850; 86900; 86901; 93005; C1729; J0690; J1100; J1200; J2001; J2405; J3010; 93010; S0020